=== PATIENT | male | born 1940 | race Two or more races ===

== ENCOUNTER 2024-01-20 06:34 | Day surgery (SDC) | payer OTHER, SELFPAY ==
[2024-01-20 08:02] VITALS: BMI 24.9
[2024-01-20 08:04] VITALS: BMI 24.9
[2024-01-20 08:11] VITALS: BP 152/79
[2024-01-20 10:58] VITALS: BP 132/80
[2024-01-20 11:00] VITALS: BP 150/81
[2024-01-20 11:15] VITALS: BP 165/82
== END 2024-01-20 11:50 | disposition home or self-care (01) ==
LOC: GI 06:34
PROVIDERS: ATTENDING PHYSICIAN Internal Medicine Gastroenterology
DX: K86.2 Cyst of pancreas (principal); R93.3 Abnormal findings on diagnostic imaging of other parts of digestive tract; K57.10 Diverticulosis of small intestine without perforation or abscess without bleeding; K86.89 Other specified diseases of pancreas
CPT/HCPCS: 43235; 88173

== ENCOUNTER → 2024-02-11 07:42 | Outpatient (REF) | payer OTHER, MEDICARE, SELFPAY | LOC: RAD 07:42 | PROVIDERS: ATTENDING PHYSICIAN Surgery; FAMILY PHYSICIAN Physician Assistant | DX: K86.9 Disease of pancreas, unspecified (principal) | CPT/HCPCS: 74177; Q9967 ==

== ENCOUNTER 2024-03-31 07:46 | Inpatient (IN) | payer OTHER, SELFPAY ==
[2024-03-23 07:49] VITALS: BMI 25.8
[2024-03-23 08:57] LABS: Hemoglobin 12.9 g/dL (13.0-18.0); Mean Corp Hgb Conc. 33.1 g/dL (33.0-37.0); Mean Corpuscular Hgb 30.9 pg (27.0-31.0); Mean Corpuscular Volume 93.5 fL (80.0-94.0); Mean Platelet Volume 10.1 fL (7.4-10.4); Platelet Count 188 10^3/uL (130-400); Red Blood Cell Count 4.17 10^6/uL (4.70-6.10); Red Cell Dist. Width 13.8 % (11.5-14.5); White Blood Cell Count 5.2 10^3/uL (4.8-10.8)
[2024-03-23 08:58] LABS: INR 0.96; PT 12.8 Sec (11.4-14.6)
[2024-03-23 08:59] LABS: APTT 31.6 Sec (23.4-35.0)
[2024-03-23 09:04] LABS: ALT (SGPT) 34 U/L (0-50); AST (SGOT) 31 U/L (17-59); Alkaline Phosphatase 96 U/L (38-126); Blood Urea Nitrogen 33 mg/dl (9-20); Calcium 9.6 mg/dl (8.4-10.2); Carbon Dioxide 27 mmol/L (22-30); Chloride 103 mmol/L (98-107); Estimated Creatinine Clearance 37 ml/min; Glucose 94 mg/dl (70-99); Potassium 4.3 mmol/L (3.5-5.1); Sodium 139 mmol/L (135-145); Total Bilirubin 0.7 mg/dl (0.2-1.3); Total Protein 6.9 g/dl (6.3-8.2); eGFR 59.63
[2024-03-31] VITALS (33 sets, daily range): BP systolic 35–161; BP diastolic 59–89; BMI 25.8
[2024-03-31] MEDS: NEURONTIN 300 MG PO (08:35)
[2024-03-31] MEDS: TYLENOL 1000 MG PO (08:36)
[2024-03-31] MEDS: NORMOSOL-R 1000 IV (08:37)
[2024-03-31] MEDS: HEPARIN 5000 UNITS SC (08:42)
[2024-03-31 11:16] LABS: B.E. - POC -5.1 mmol/L; Glucose - POC 136 mg/dl (65-99); HCO3 - POC 20 mmol/L (21-29); Hematocrit - POC 31 % PCV (42-52); Hemodilution- POC Yes; Hemoglobin Calculated - POC 10.4; Ionized Calcium - POC 1.05 mmol/L (1.12-1.27); Lactate - POC 0.76 mmol/L (0.36-0.75); O2 Saturation %Calculated-POC 99.7 5 (92-96); PCO2 - POC 37 mmHg (35-45); PO2 - POC 215 mmHg (80-100); Potassium - POC 3.8 mmol/L (3.6-5.0); Sodium - POC 145 mmol/L (135-145); pH - POC 7.34 (7.35-7.45)
[2024-03-31 12:51] LABS: B.E. - POC -1.7 mmol/L; Glucose - POC 141 mg/dl (65-99); HCO3 - POC 23 mmol/L (21-29); Hematocrit - POC 30 % PCV (42-52); Hemodilution- POC Yes; Hemoglobin Calculated - POC 10.1; Ionized Calcium - POC 1.24 mmol/L (1.12-1.27); Lactate - POC 0.59 mmol/L (0.36-0.75); O2 Saturation %Calculated-POC 99.9 5 (92-96); PCO2 - POC 38 mmHg (35-45); PO2 - POC 256 mmHg (80-100); Potassium - POC 4.6 mmol/L (3.6-5.0); Sodium - POC 142 mmol/L (135-145); pH - POC 7.39 (7.35-7.45)
[2024-03-31 14:48] LABS: B.E. - POC -7.6 mmol/L; Glucose - POC 142 mg/dl (65-99); HCO3 - POC 17 mmol/L (21-29); Hematocrit - POC 30 % PCV (42-52); Hemodilution- POC Yes; Hemoglobin Calculated - POC 10.2; Ionized Calcium - POC 1.13 mmol/L (1.12-1.27); Lactate - POC 0.85 mmol/L (0.36-0.75); O2 Saturation %Calculated-POC 99.8 5 (92-96); PCO2 - POC 29 mmHg (35-45); PO2 - POC 221 mmHg (80-100); Potassium - POC 3.7 mmol/L (3.6-5.0); Sodium - POC 143 mmol/L (135-145); pH - POC 7.37 (7.35-7.45)
--- NOTE | 2024-03-31 15:09 | W.IMMPOSTOP ---
Surgical Immed Post Op Note
-
Primary Surgeon: Artur Lee M.D.
Assisting Surgeon: Jennifer Valente
Pre-op Diagnosis: Pancreatic head mass
Post-op Diagnosis: Same with the final pathology pending
Procedure Performed: Whipple
Anesthesia Type: General
Specimen / Cultures: gallbladder, distal stomach with head of the pancreas and the duodenum
Estimated Blood Loss: 250cc
Complications: None
Operative Findings: Large multicystic nodules in the head of the pancreas extending to the uncinate process
--- NOTE | 2024-03-31 15:40 | CON.INTV ---
Consultation
Consultation Request
Date/Time Consultation Requested: 03-31-24
Date/Time Consultation Performed: 03-31-24
Requesting Provider: Hospitalist Carolyn
Performing Provider: Dr Mendez
Reason for Consultation: s/p Whipple
Medical History
-
Chief Complaint: s/p Whipple procedure
History of Present Illness:
Mr Carlos GUILLEN is an 84/M adm 03-31 for schedule Whipple procedure for recent diagnosis of pancreatic cancer.
CT abd/p in Jul 2023 was done for investigation of flank pain, showing pancreatic head cystic mass of 4 cm. MRI abd Aug 2023 showed multiple cysts. EUS in January 2023 biopsy results consistent with intraductal papillary mucinous neoplasm (IPMN) of
the pancreas.
Seen by Dr Lee, considered a good candidate for pancreatoduodenectomy. Cardiac clearance per outpatient evaluation given on 03-14 (low risk PET/CT ST).
Received Whipple procedure 03-31. Transferred to ICU after surgery due to intraop oozing in spite of preop holding of clopidogrel. Per anesthesia records, intubated for surgery, extubated post surgery
Seen at ICU, c/o postop pain. Denies dyspnea, CP, [place], nausea.
Nonsmoker. Not on home O2 or BDs
Past Medical History
Past Medical History: Other (see A&P for PMH/PSH)
Social History
Tobacco: Non-smoker
Alcohol: None
Drug: None
Family History
Family History: Reviewed & Not Pertinent
Allergies / Home Medications
Allergies
Allergy/AdvReac Type Severity Reaction Status Date / Time
No Known Allergies Allergy Verified 03/31/24 08:03
Home Medications
�Medication �Instructions �Recorded �Confirmed �Last Taken �Type
aspirin 81 mg tablet 81 mg PO DAILY 01/20/24 03/31/24 03/31/24 06:30 History
atenolol 25 mg tablet 25 mg PO DAILY 01/20/24 03/31/24 03/31/24 06:30 History
atorvastatin 80 mg tablet 80 mg PO DAILY 01/20/24 03/31/24 03/31/24 06:30 History
clopidogrel 75 mg tablet 75 mg PO DAILY 01/20/24 03/31/24 03/24/24 History
losartan 25 mg tablet 12.5 mg PO BID 01/20/24 03/31/24 03/30/24 08:00 History
mirabegron 50 mg tablet,extended 50 mg PO HS 01/20/24 03/31/24 03/30/24 22:30 History
release 24 hr (Myrbetriq)
tamsulosin 0.4 mg capsule 0.4 mg PO HS 01/20/24 03/31/24 03/30/24 22:30 History
atenolol 25 mg tablet 37.5 mg PO HS 03/29/24 03/31/24 03/30/24 20:00 History
Review of Systems
-
History Source: Patient
Constitutional: Fatigue
Abdomen/GI: Abdominal Pain (incisional)
Musculoskeletal: Other (postop back pain)
Vitals / Labs / Diagnostic Testing
Vital Signs
Temp Pulse Resp BP Pulse Ox
98.4 F 49 18 161/83 96
03/31/24 08:16 03/31/24 08:16 03/31/24 08:16 03/31/24 08:16 03/31/24 08:16
Lab Data
03/23/24 07:47
03/23/24 07:47
Diagnostic Testing:
Physical Exam
-
HEENT: Normocephalic and Moist Mucous Membranes
Cardiovascular: Regular Rhythm, Peripheral Edema (n), Calf Tenderness (n) and JVD (n)
Respiratory: Clear and Non-Labored Respirations
GI: Tender and Organomegaly (midline laparotomy wound, two drainage tubes)
Neurology: Awake, AO x 3 and No Motor Deficits
General: Respiratory Distress (n)
Assessment
-
Assessment:
Mr Carlos GUILLEN is an 84/M adm 03-31 for schedule Whipple procedure for recent diagnosis of pancreatic cancer. CT abd/p in Jul 2023 was doing for flank pain, showing pancreatic head cystic mass of 4 cm. MRI abd Aug 2023 showed multiple cysts. EUS in
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 Seen by Dr Lee, considered a good candidate fro pancreatoduodenectomy. Cardiac clearance per outpatient evaluation given on 03-14 (low risk
PET/CT ST). Transferred to ICU after surgery due to intraop oozing in spite of preop holding of clopidogrel. Per anesthesia records, intubated for surgery, extubated post surgery
Impression:
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
S/p Whipple procedure 03-31
Conditions SVP OPERATIONS:
T2DM
HTN
CVA
AAA
BPH
Plan:
O2 protocol
Not on home O2 or BDs
Asp precs
IS
Pain mgmt
Dilaudid low dose at 0.25 mg IV q1h for mod to severe pain
Naive to opiates
Reevaluate and increase dose if necessary
APAP IV at 1 g q6h
No NSAIDs for pain mgmt per Dr Lee
IVFs
Received 3L IVFs at OR
Keep LR at KVO for now, reevaluate and increase gtt depending of UO, BP, HR
Keep NPO
NGT to suctioning
Advance to clear liquids once OK by Sx
Monitor H/H
Monitor BP
Holding a-HTN meds for now
Holding ASA/clopidogrel, resume once OK by Sx
SCDs for DVT prophylaxis
Critical care time: 35 min
D/w DIRECTOR OF STRATEGIC COMMUNICATIONS
D/w overnight ICU DOVETAILER
--- NOTE | 2024-03-31 16:02 | HPS.HSE ---
Family Physician
-
Family Physician: Bijal Soni
Chief Complaint
-
Post-Whipple Procedure
History of Present Illness
84 y/o male with past medical history of pancreatic cysts/pancreatic cancer, DM, HTN, HLD, AAA (sees a vascular surgeon at [facility]), valvular heart disease (mild to moderate MR, mild AI, and mild TR), SVT, NSVT, loop recorder placement, PACs and
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 Lee. Dr. Lee mentioned patient lost about 250 cc of blood
during the procedure. He requested patient be monitored in ICU overnight closely for any decompensation. Patient denied any significant symptoms or complaints when he was seen.
Medical History
Past Medical History
Past Medical History: Reports Other (As per HPI above)
Past Surgical History: Reports Other (Bilateral Hernia Repair. Cataract Surgery. Loop Recorder. )
Social History
Tobacco: Non-smoker
Alcohol: Occasional
Family History
Family History: Not pertinent
Allergies / Home Medications
Allergies reflects when Allergies were last updated in [facility].
Home Medications with original date entered in [facility]
Allergy/Medication List:
Allergies
Allergy/AdvReac Type Severity Reaction Status Date / Time
No Known Allergies Allergy Verified 03/31/24 08:03
Home Medications
aspirin 81 mg tablet 81 mg PO DAILY 01/20/24
atenolol 25 mg tablet 25 mg PO DAILY 01/20/24
atorvastatin 80 mg tablet 80 mg PO DAILY 01/20/24
clopidogrel 75 mg tablet 75 mg PO DAILY 01/20/24
losartan 25 mg tablet 12.5 mg PO BID 01/20/24
mirabegron 50 mg tablet,extended release 24 hr (Myrbetriq) 50 mg PO HS 01/20/24
tamsulosin 0.4 mg capsule 0.4 mg PO HS 01/20/24
atenolol 25 mg tablet 37.5 mg PO HS 03/29/24
Review of Systems
-
A 12 point ROS was completed and negative except as noted: Yes
Physical Exam
Vital Signs
Vital Signs
Temp Pulse Resp BP Pulse Ox
97.4 F 74 18 133/67 99
03/31/24 15:20 03/31/24 15:45 03/31/24 15:45 03/31/24 15:45 03/31/24 15:50
Physical Exam
General: No Apparent Distress and Comfortable
HEENT: NormoCephalic and Other (NG tube)
Respiratory: Rhonchi (mild; bilaterally, anteriorly)
Cardiac: S1/S2 and Regular Rhythm
GI: Soft and Other (Midline surgical dressing in place. [address] with serosanguinous output.)
Musculoskeletal: No Cyanosis and No Edema
Skin: Warm and Dry
Neuro: Sedated (responds to questions on arousal)
Psych: Calm
Laboratory Results
-
Laboratory Results
PT 12.8 Sec (11.4-14.6) 03/23/24 07:47
INR 0.96 03/23/24 07:47
APTT 31.6 Sec (23.4-35.0) 03/23/24 07:47
Total Bilirubin 0.7 mg/dl (0.2-1.3) 03/23/24 07:47
AST 31 U/L (17-59) 03/23/24 07:47
ALT 34 U/L (0-50) 03/23/24 07:47
Alkaline Phosphatase 96 U/L (38-126) 03/23/24 07:47
Impression/Plan
-
Assessment/Plan
Pancreatic Head Mass Status Post Whipple Surgery on March 31, 2024
Large multicystic nodules in the head of the pancreas extending to the uncinate process
Pancreatic cysts/pancreatic cancer
-Whipple surgery on 03/31/24 -- was a 6 hours surgery
-Type and Screen and blood consent already obtained prior to surgery, as per Dr. Lee
-Monitor patient in ICU closely
-Monitor H&H and transfuse as needed to maintain Hgb>7
-AM labs and iron studies
History of Episode Atypical Chest Pain
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
SVT
NSVT
History of loop recorder placement
PACs
PVCs (sees cardiology at [place])
History of cardiac rhythm pauses
-Patient is supposed to be on Atenolol 12.5 mg in the morning
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
AAA (sees a vascular surgeon at [facility])
-Based on outside vascular surgeon records, AAA size is 4.6
-Sees Vascular Surgeon Dr. Vázquez at [facility]
-Planned for repeat imaging in April 2024
-Closely follow-up with Dr. Shannon Vázquez MD, outpatient
DM
-Accuchecks Q6H
-Start Diabetic, Low Sodium diet when patient is not NPO anymore
HTN
-Continue Losartan when able to take PO
-Outpatient cardiology records show that patient takes Losartan 25 mg in the AM and 37.5 mg in the PM (was on 25 mg BID)
-Per records, patient gets dry cough with Lisinopril
-Previously used to take HCTZ, but no longer
-Low sodium diet when diet is resumed
HLD
-Continue home Atorvastatin when able
BPH
-Continue Flomax when able to take PO
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
-No cardioembolic source was found at that time
-Continue Aspirin, Plavix and Statin when able
Varicose veins
?skin cancer?
History of nephrolithiasis
DVT PPx: SCDs
Code Status: Full Code
[2024-03-31 16:03] LABS: Hemoglobin 10.7 g/dL (13.0-18.0); Mean Corp Hgb Conc. 33.4 g/dL (33.0-37.0); Mean Corpuscular Hgb 30.7 pg (27.0-31.0); Mean Platelet Volume 9.6 fL (7.4-10.4); Platelet Count 156 10^3/uL (130-400); Red Blood Cell Count 3.48 10^6/uL (4.70-6.10); Red Cell Dist. Width 13.6 % (11.5-14.5); White Blood Cell Count 11.1 10^3/uL (4.8-10.8)
[2024-03-31 16:14] LABS: APTT 27.6 Sec (23.4-35.0)
[2024-03-31 16:19] LABS: ALT (SGPT) 81 U/L (0-50); AST (SGOT) 86 U/L (17-59); Albumin 2.9 g/dl (3.5-5.0); Alkaline Phosphatase 71 U/L (38-126); Amylase 107 U/L (30-110); Blood Urea Nitrogen 20 mg/dl (9-20); Calcium 8.6 mg/dl (8.4-10.2); Carbon Dioxide 26 mmol/L (22-30); Chloride 107 mmol/L (98-107); Estimated Creatinine Clearance 44 ml/min; Glucose 149 mg/dl (70-99); Lipase 314 U/L (23-300); Potassium 4.2 mmol/L (3.5-5.1); Sodium 140 mmol/L (135-145); Total Bilirubin 1.1 mg/dl (0.2-1.3); Total Protein 5.1 g/dl (6.3-8.2); eGFR > 60.00
[2024-03-31 16:43] LABS: Magnesium 1.9 mg/dl (1.6-2.3)
[2024-03-31] MEDS: DILAUDID 0.25 MG IV ×5 (16:45→21:16)
[2024-03-31] MEDS: LR 1000 IV (17:12)
--- NOTE | 2024-03-31 18:05 | PTCARENOTE ---
Received pt into Rm [id number] via bed from PACU at 1620. Pt drowsy but arousable to name. O2 at 2l/min via NC w/ POx 99%. Rt nare NGT present and placed to LIWS per order w/ small amount dark maroon drainage noted. Lt radial [place] transduced, leveled and
zero-balanced, waveform WNL. Aquacel dressing to midline abdomen w/ small amount of shadow drainage noted- no change from where previously marked. OFELIA drains to Rt and Lt abdomen. Emptied of serosanguineous drainage and recompressed. Orientation
provided to pt on surroundings and plan of care. Pt natively Portugese speaking but appears to understand questions and responds appropriately. Physical assessment as documented. By 1635 pt notably uncomfortable and c/o 10/10 lower back pain.
Mendez in room to assess pt and aware of pt's complaint. Order for Dilaudid 0.25mg IV received and given per DEC. Pt w/o relief of discomfort 15 minutes following Dilaudid. SBP in 170-180's by ABP. HR 80's. Abdomen remains soft and no change in
drainage of NGT or OFELIA drains. [place] Text to Dr Lee with pt continued c/o lower back pain. Order for additional dose of Dilaudid 0.25mg IV- given per DEC w/ pt dozing following administration. SBP remains 170-180's via ABP. Pt's daughter and
additional family members in room to see pt. Updated on pt's present condition and plan of care. Questions answered and support provided. assisted w/ answering admission questions. Comfort care provided to pt. Dilaudid given per DEC for
additional c/o pain.
--- NOTE | 2024-03-31 19:29 | PTCARENOTE ---
Handoff report received from off going RN. Dual RN skin check completed with off going RN. The patient has a midline abdominal incision with aquacell dressing intact. 3 small drainage spots noted. Right OEFLIA drain draining sanguinous drainage >left OFELIA
drain. Patient is AAOx4 and able to make his needs known. Complains of 10/10 abdominal incisional pain and centre back pain. Plan of care for the shift and pain management plan reviewed with the patient. Pt's sinus rhythm on the monitor. Weak but
palpable pulses. PIV. LR at 10ml/hr via left AC. Left radial arterial line zeroed and calibrated. Line flushes well with blood return and good Waveform. Pt's A-line SBP in the 180s-190s. Manual cuff pressure SBP in the 140s and 150s on the right
upper arm and SBP 150s in the left upper arm. MIGUELINA Ashraf made aware and at the bedside. Plan to continue monitoring at this time. Crackles to bilateral bases. Pt's on 2L/O2 nc. SpO2 at 100%. Hypoactive BS. Martinez catheter is draining yellow
urine. SCDs in place. PRN pain medication administered. Full assessment as noted on the flowsheet.
[2024-03-31] MEDS: OFIRMEV 100 IV (20:04)
[2024-03-31 22:28] LABS: Hematocrit 31.9 % (39.0-52.0); Hemoglobin 10.9 g/dL (13.0-18.0)
[2024-04-01] VITALS (23 sets, daily range): BP systolic 110–163; BP diastolic 56–94; BMI 25.7
--- NOTE | 2024-04-01 00:18 | PTCARENOTE ---
Patient reassessed. Remains AAOx3 and able to make his needs known. VSS. C/o 07/20 pain. OFELIA draining sanguineous output. A>B. UOP adequate. LR at 50ml/hr. NGT draining maroon blood output to LIWS.
[2024-04-01] MEDS: DILAUDID 0.25 MG IV ×6 (00:22→22:45)
[2024-04-01] MEDS: OFIRMEV 100 IV ×3 (02:11→13:49)
[2024-04-01 03:53] LABS: % Basophils 0.2 % (0-2); % Immature Granulocytes 0.4 % (0-0.5); % Lymphocytes 4.9 % (20.5-51.1); % Neutrophils 88.5 % (42.2-75.2); Absolute Immature Granulocytes 0.1 10^3/uL (0-0.05); Absolute Lymphocytes 0.6 10^3/uL (1.2-3.4); Absolute Monocytes 0.8 10^3/uL (0.1-0.6); Absolute Neutrophils 11.4 10^3/uL (1.4-6.5); Hematocrit 31.3 % (39.0-52.0); Hemoglobin 10.6 g/dL (13.0-18.0); Mean Corp Hgb Conc. 33.9 g/dL (33.0-37.0); Mean Corpuscular Hgb 30.9 pg (27.0-31.0); Mean Corpuscular Volume 91.3 fL (80.0-94.0); Mean Platelet Volume 9.9 fL (7.4-10.4); Nucleated Red Blood Cells % 0 % (-); Platelet Count 171 10^3/uL (130-400); Red Blood Cell Count 3.43 10^6/uL (4.70-6.10); Red Cell Dist. Width 13.6 % (11.5-14.5); White Blood Cell Count 12.9 10^3/uL (4.8-10.8)
[2024-04-01 04:16] LABS: ALT (SGPT) 68 U/L (0-50); AST (SGOT) 79 U/L (17-59); Albumin 2.9 g/dl (3.5-5.0); Alkaline Phosphatase 56 U/L (38-126); Blood Urea Nitrogen 25 mg/dl (9-20); Calcium 8.4 mg/dl (8.4-10.2); Carbon Dioxide 25 mmol/L (22-30); Chloride 105 mmol/L (98-107); Estimated Creatinine Clearance 40 ml/min; Glucose 179 mg/dl (70-99); Iron 29 ug/dl (49-181); Magnesium 2.1 mg/dl (1.6-2.3); Potassium 4.8 mmol/L (3.5-5.1); Sodium 136 mmol/L (135-145); Total Bilirubin 0.6 mg/dl (0.2-1.3); Total Protein 5.1 g/dl (6.3-8.2); eGFR > 60.00
[2024-04-01 04:25] LABS: Percent Saturation 14 % (20-50); Total Iron Binding Capacity 196 ug/dl (261-462)
--- NOTE | 2024-04-01 04:41 | PTCARENOTE ---
Patient reassessed. AAOx3. c/o 07/20 pain. PRN administered. Patient cleansed and linens changed. VSS on the monitor. No changes from the previous assessment.
[2024-04-01 04:51] LABS: Ferritin 97.6 ng/ml (17.9-464.0)
[2024-04-01 05:05] LABS: Vitamin B12 287 pg/ml (239-931)
--- NOTE | 2024-04-01 07:53 | W.PN.INTV ---
Today's Communication / Plan
Recommendations
Asp precs
IS
Pain mgmt
Reconsult prn
Assessment
-
Assessment:
Mr Carlos GUILLEN is an 84/M adm 03-31 for schedule Whipple procedure for recent diagnosis of pancreatic cancer. CT abd/p in Jul 2023 was doing for flank pain, showing pancreatic head cystic mass of 4 cm. MRI abd Aug 2023 showed multiple cysts. EUS in
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 Seen by Dr Lee, considered a good candidate fro pancreatoduodenectomy. Cardiac clearance per outpatient evaluation given on 03-14 (low risk
PET/CT ST). Transferred to ICU after surgery due to intraop oozing in spite of preop holding of clopidogrel. Per anesthesia records, intubated for surgery, extubated post surgery
Impression:
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
S/p Whipple procedure 03-31
Conditions SECURITY FLEX UTILITY OFFICER:
T2DM
HTN
CVA
AAA
BPH
Plan:
O2 protocol
Not on home O2 or BDs
Asp precs
IS
CXR 03-31 with no infiltrates. (N)GT, no free air under diaphragm
Pain mgmt
Dilaudid low dose at 0.25 mg IV q1h for mod to severe pain
Naive to opiates
Reevaluate and increase dose if necessary
APAP IV at 1 g q6h
No NSAIDs for pain mgmt per Dr Lee
Hgb remains stable postop: adm hgb 10.7, at 10.6 on 04-01
IVFs: LR
Received 3L IVFs at OR
Keep NPO
NGT to suctioning
Advance to clear liquids once OK by Sx
Monitor H/H
Monitor BP
Resume oral a-HTN meds when tolerating oral route
Holding ASA/clopidogrel, resume once OK by Sx
SCDs for DVT prophylaxis
No critical care time charged today
Stable to transfer to Med/Sx floor, reconsult as needed
D/w PLUSH FINISHER
Subjective Dataa
Subjective Data
Date of Service:
Date of Service: April 01, 2024
Chief Complaint: Edi Coordinator Follow Up
Subjective:
No major events reported overnight
Remained hemodynamically and respiratory tang stable
Hemoglobin has remained stable
Continues on IV fluids
Intermittent mild nausea
Nasogastric tube remains in place
Review of Systems
General: Fever (n), Sweats (n) and Satisfactory Appetite (n)
Cardiopulmonary: Dyspnea (n), Cough (n) and Chest Pain (n)
GI: Abdominal Pain (Incisional)
Neuro: Weakness
Objective Data
Data Reviewed
Vital Signs / I&O / Oxygen:
Vital Signs
Temp Pulse Resp BP Pulse Ox
98.4 F 54 19 141/73 100
04/01/24 07:20 04/01/24 00:30 04/01/24 00:30 04/01/24 00:00 04/01/24 00:30
Intake and Output
03/31/24 04/01/24 04/02/24
06:59 06:59 06:59
Intake Total 700 / 850 150 / 150
Output Total 2303 / 2303
Balance -1603 / -1453 150 / 150
SaO2 100
Nasal Cannula flow liters per 2
minute
Physical Exam
General: Comfortable
HEENT: Normocephalic and Moist Mucous Membranes
Cardiovascular: Regular Rhythm, JVD (n) and Peripheral Edema (n)
Respiratory: Clear, Accessory Resp Muscle Use (n) and Stridor (n)
GI: Non Distended and Tender
Neurology: Awake, AO x 3 and No Motor Deficits
Skin: Warm
Labs/Micro/Reports
Lab Data
04/01/24 03:35
04/01/24 03:35
Laboratory Results
03/31/24
15:53
PT 15.0 H
INR 1.20
APTT 27.6
--- NOTE | 2024-04-01 08:00 | PTCARENOTE ---
Received pt @ change of shift. AAOx3, c/o moderate abd pain @ incision, standing Tylenol admin- see DEC. SB-SR on monitor. SPo2 96% on RA. BS remain absent post op. R nare NGT to LIS w small amt of brown/maroon output. NPO status maintained. R/L
ABD OFELIA drain in place; R output>L; sang drainage. Martinez in place draining clear/yellow urine. Midline aquacell dressing w 3 scant spots of old drainage; circled by previous shift and drainage not increasing. B/L OFELIA site dressings c/d/i. #20 L AC
w LR @ 50mL/hr infusing; #18 L FA patent, dressing c/d/i. L rad A-line transduced, monitored, and calibrated; all ports patent and secured. -40mmHg off from current cuff pressures. MDs aware of A-line/cuff discrepancy on previous shift; received
in report to use cuff pressures for reliability. Hygiene care provided. Assisted w repositioning in bed. Instructed on how to report care concerns and call [place] in reach.
--- NOTE | 2024-04-01 11:31 | PTCARENOTE ---
L rad A-line d/c'd per orders. Pressure held until bleeding ceased and clean dressing applied. No signs of hematoma. Pt. w 1 episode of nausea today, plan to keep pt. NPO and NGT to LIS per surgery, Dr. Lee. Activity orders advanced and pt.
assisted OOB to chair x 2, generalized weakness. Pt.'s daughter updated via phone call. Call trin[place] remains w in reach.
--- NOTE | 2024-04-01 12:38 | W.PN.GENERIC ---
Assessment / Plan
-
S/p Whipple Procedure POD #1
Stable. No problems overnight.
No evidence of bleeding
Continue NPO, NGT, Rao cath, IVF
If he remains stable, will tsf pt to the surgical floor, dc NGT and dc rao tomorrow
Encourage pulmonary toilet
OOB to chair
Physician Progress Note
Subjective
C/o incisional pain. O/w no other complaints
Objective
Vital Signs
Temp Pulse Resp BP Pulse Ox
98.5 F 53 22 130/62 93
04/01/24 11:30 04/01/24 10:00 04/01/24 10:00 04/01/24 10:00 04/01/24 10:00
Lab Results
04/01/24 03:35
04/01/24 03:35
Abdomen - soft, NT. Dsg - CDI. OFELIA drains with serosanguineous fluid
Cor - RRR
[2024-04-01] MEDS: LR 1000 IV ×2 (12:54→22:45)
--- NOTE | 2024-04-01 13:52 | W.PN.HOSP.TC ---
Today's Communication/Plan
-
-NGT to suctioning - continue NPO, NGT, Rao cath, IVF - plans to dc NGT and dc rao tomorrow
-Pulmonary toilet
-OOB to chair
Assessment / Plan
Assessment / Plan
Physical Exam
General: No Apparent Distress and Comfortable
HEENT: Normocephalic and Other (NG tube)
Respiratory: Rhonchi (mild; bilaterally, anteriorly)
Cardiac: S1/S2 and Regular Rhythm
GI: Soft and Other (Midline surgical dressing in place. [address] with serosanguinous output.)
Musculoskeletal: No Cyanosis and No Edema
Skin: Warm and Dry
Neuro: Alert. Awake.
Psych: Calm
Assessment/Plan
Pancreatic Head Mass Status Post Whipple Surgery on March 31, 2024
Large multicystic nodules in the head of the pancreas extending to the uncinate process
Pancreatic cysts/pancreatic cancer
Leukocytosis
-Whipple surgery on 03/31/24 -- was a 6 hours surgery
-Type and Screen and blood consent already obtained prior to surgery, as per Dr. Lee
-Monitor patient in ICU closely
-Monitor H&H and transfuse as needed to maintain Hgb>7
-Iron studies noted
-No NSAIDs for pain mgmt per Dr Lee
-Keep NPO
-NGT to suctioning - continue NPO, NGT, Rao cath, IVF - plans to dc NGT and dc rao tomorrow
-Pulmonary toilet
-OOB to chair
Suspected Acute Blood Loss Anemia
Vitamin B12 close to low range @287
-IV iron while inpatient
-Supplement Vitamin B12 IM 1000 daily
Elevated Hepatic Transaminases
-Mild elevation
-Continue to monitor
History of Episode Atypical Chest Pain
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
SVT
NSVT
History of loop recorder placement
PACs
PVCs (sees cardiology at [place])
History of cardiac rhythm pauses
-Patient is supposed to be on Atenolol 12.5 mg in the morning
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
AAA (sees a vascular surgeon at [place])
-Based on outside vascular surgeon records, AAA size is 4.6
-Sees Vascular Surgeon Dr. Vázquez at [place]
-Planned for repeat imaging in April 2024
-Closely follow-up with Dr. Shannon Vázquez MD, outpatient
DM
-Accuchecks Q6H
-Start Diabetic, Low Sodium diet when patient is not NPO anymore
HTN
-Continue Losartan when able to take PO
-Outpatient cardiology records show that patient takes Losartan 25 mg in the AM and 37.5 mg in the PM (was on 25 mg BID)
-Per records, patient gets dry cough with Lisinopril
-Previously used to take HCTZ, but no longer
-Low sodium diet when diet is resumed
HLD
-Continue home Atorvastatin when able
BPH
-Continue Flomax when able to take PO
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
-No cardioembolic source was found at that time
-Continue Aspirin, Plavix and Statin when able to take PO
Varicose veins
?skin cancer?
History of nephrolithiasis
DVT PPx: SCDs
Code Status: Full Code
Anticipated Discharge: > 48 hours
Subjective/Interval History
-
Date of Service: April 01, 2024
Patient was seen and examined. He reported nausea this morning.
Objective Data
-
Labs:
Laboratory Results
04/01/24
03:35
WBC 12.9 H
Hgb 10.6 L
Hct 31.3 L
Plt Count 171
Sodium 136
Potassium 4.8
Chloride 105
Carbon Dioxide 25
BUN 25 H
Creatinine 1.1
Glucose 179 H
Calcium 8.4
Total Bilirubin 0.6
AST 79 H
ALT 68 H
Alkaline Phosphatase 56
Vital Signs:
Vital Signs
Temp Pulse Resp BP Pulse Ox
98.5 F 53 22 130/62 93
04/01/24 11:30 04/01/24 10:00 04/01/24 10:00 04/01/24 10:00 04/01/24 10:00
I&O
03/31/24 04/01/24 04/02/24
06:59 06:59 06:59
Intake Total 700 / 850 520 / 520
Output Total 2303 / 2303 390 / 390
Balance -1603 / -1453 130 / 130
[2024-04-01 14:04] LABS: Glucose - Point of Care 141 mg/dl (70-99)
[2024-04-01] MEDS: CYANOCOBALAMIN 1000 MCG IM (14:16)
[2024-04-01] MEDS: FERRLECIT 110 MG IV (14:17)
--- NOTE | 2024-04-01 16:07 | PTCARENOTE ---
Pt. tolerated OOB to chair approx 7H. Assisted x1 back to bed. Instructed earlier on breathing exercises/IS, pt. demonstrates understanding. Remains NPO w NGT to LIS. No further episodes of nausea. Assisted w repositioning in bed. Call trin[place]
placed w in reach.
[2024-04-01 18:01] LABS: Glucose - Point of Care 138 mg/dl (70-99)
[2024-04-01] MEDS: HEPARIN 5000 UNITS SC (19:28)
--- NOTE | 2024-04-01 19:35 | PTCARENOTE ---
Handoff report received from off going RN. Patient received in bed AAOx3 and able to make his needs known. The patient complains of 10/10 abdominal incisional pain. Plan of care for the shift and pain management plan reviewed with the patient. VSS
on the monitor. Palpable pulses throughout. Right forearm IV patent with LR at 80 ml/hr. Clear breath sounds with crackles to the bases. SpO2 100% on room air. No cough noted. Absent bowel sounds Protective sacral foam is intact. SCDs in place.
mouth care provided. Rt nare NGT to LIWS with dark maroon/brownish output. Martinez catheter is patent and draining yellow urine. PRN Dilaudid administered. Linens changed and patient repositioned. Safety measures are in place. Call trin[place] and personal
belongings are within reach.
[2024-04-02] VITALS (15 sets, daily range): BP systolic 127–165; BP diastolic 70–102; PULSE 89; O2SAT 96; BMI 25.7
[2024-04-02 00:03] LABS: Glucose - Point of Care 128 mg/dl (70-99)
--- NOTE | 2024-04-02 00:53 | PTCARENOTE ---
Patient reassessed. Remains AAOx3.VSS. Pt noted to be asleep. Even chest rise noted. SpO2@ 94% on room air. No changes from previous assessment.
--- NOTE | 2024-04-02 04:53 | PTCARENOTE ---
Patient reassessed. VSS. complains of 6/10 pain. declines pain medication. Rt OFELIA drain with sanguineous output and left OFELIA drain with dark brown output. Rt OFELIA output > Lt OFELIA. Pt's Rt NGT to LIWS draining green drainage. Martinez catheter is draining
yellow urine. turns and repositioning continued.
[2024-04-02 04:54] LABS: % Basophils 0.2 % (0-2); % Immature Granulocytes 0.5 % (0-0.5); % Lymphocytes 5.3 % (20.5-51.1); % Monocytes 6.3 % (1.7-9.3); % Neutrophils 87.7 % (42.2-75.2); Absolute Immature Granulocytes 0.1 10^3/uL (0-0.05); Absolute Lymphocytes 0.7 10^3/uL (1.2-3.4); Absolute Monocytes 0.9 10^3/uL (0.1-0.6); Absolute Neutrophils 11.9 10^3/uL (1.4-6.5); Hematocrit 32.7 % (39.0-52.0); Hemoglobin 11.1 g/dL (13.0-18.0); Mean Corp Hgb Conc. 33.9 g/dL (33.0-37.0); Mean Corpuscular Hgb 30.9 pg (27.0-31.0); Mean Corpuscular Volume 91.1 fL (80.0-94.0); Nucleated Red Blood Cells % 0 % (-); Platelet Count 171 10^3/uL (130-400); Red Blood Cell Count 3.59 10^6/uL (4.70-6.10); Red Cell Dist. Width 13.8 % (11.5-14.5); White Blood Cell Count 13.6 10^3/uL (4.8-10.8)
[2024-04-02] MEDS: DILAUDID 0.25 MG IV (05:06)
--- NOTE | 2024-04-02 05:11 | PTCARENOTE ---
Patient asked for his prn pain medication for 8/10 pain to abd incision. PRN administered.
[2024-04-02 05:17] LABS: ALT (SGPT) 58 U/L (0-50); AST (SGOT) 59 U/L (17-59); Albumin 2.9 g/dl (3.5-5.0); Alkaline Phosphatase 59 U/L (38-126); Blood Urea Nitrogen 21 mg/dl (9-20); Calcium 8.4 mg/dl (8.4-10.2); Carbon Dioxide 29 mmol/L (22-30); Chloride 103 mmol/L (98-107); Estimated Creatinine Clearance 40 ml/min; Glucose 133 mg/dl (70-99); Potassium 4.2 mmol/L (3.5-5.1); Sodium 138 mmol/L (135-145); Total Bilirubin 0.6 mg/dl (0.2-1.3); Total Protein 5.2 g/dl (6.3-8.2); eGFR > 60.00
[2024-04-02 06:01] LABS: Glucose - Point of Care 137 mg/dl (70-99)
--- NOTE | 2024-04-02 07:48 | W.PN.INTV ---
Today's Communication / Plan
Recommendations
NGT
Pain mgmt
IVFs
To Med/Sx once ok by Dr Lee
Assessment
-
Assessment:
Mr Carlos GUILLEN is an 84/M adm 03-31 for schedule Whipple procedure for recent diagnosis of pancreatic cancer. CT abd/p in Jul 2023 was doing for flank pain, showing pancreatic head cystic mass of 4 cm. MRI abd Aug 2023 showed multiple cysts. EUS in
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 Seen by Dr Lee, considered a good candidate fro pancreatoduodenectomy. Cardiac clearance per outpatient evaluation given on 03-14 (low risk
PET/CT ST). Transferred to ICU after surgery due to intraop oozing in spite of preop holding of clopidogrel. Per anesthesia records, intubated for surgery, extubated post surgery
Impression:
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
S/p Whipple procedure 03-31
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
T2DM
HTN
CVA
AAA
BPH
Plan:
O2 protocol
Not on home O2 or BDs
Asp precs
IS
CXR 03-31 with no infiltrates. (N)GT, no free air under diaphragm
Pain mgmt
Dilaudid low dose at 0.25 mg IV q1h for mod to severe pain
Naive to opiates
Reevaluate and increase dose if necessary, so fare remains relatively comfortable on above regimen
APAP IV at 1 g q6h, now discontinued
No NSAIDs for pain mgmt per Dr Lee
Hgb remains stable postop: adm hgb 10.7, at 10.6 on 04-01, 11.1 on 04-02
IVFs: LR
Received 3L IVFs at OR
Remains afebrile and hemodyn stable
Observing off atbs
Keep NPO
NGT to suctioning
Advance to clear liquids once OK by Sx
Monitor H/H
Monitor BP
Resume oral a-HTN meds when tolerating oral route
Holding ASA/clopidogrel, resume once OK by Sx
SCDs for DVT prophylaxis
OOB as tolerated
No critical care time charged today
Stable to transfer to Med/Sx floor once OK with Dr Lee, will sign off then
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
Subjective Dataa
Subjective Data
Date of Service:
Date of Service: April 02, 2024
Chief Complaint: Tile Decorator Follow Up
Subjective:
No major events reported overnight
So far progressing well in the postoperative state
Sitting in chair at time of visit
Reports postop abdominal pain, however this is improved
Nasogastric tube in place, remains n.p.o.
Review of Systems
General: Fever (n), Sweats (n) and Satisfactory Appetite (n)
HEENT: Epistaxis (n) and Dysphagia (n)
Cardiopulmonary: Dyspnea (n), Cough (n), Wheezing (n), Chest Pain (n) and Edema (n)
GI: Abdominal Pain, Nausea (n) and Vomiting (n)
Neuro: Weakness
Objective Data
Data Reviewed
Vital Signs / I&O / Oxygen:
Vital Signs
Temp Pulse Resp BP Pulse Ox
99.6 F 65 20 149/70 100
04/02/24 03:12 04/01/24 19:00 04/01/24 19:00 04/01/24 19:00 04/01/24 19:53
Intake and Output
04/01/24 04/02/24 04/03/24
06:59 06:59 06:59
Intake Total 700 / 850 2160 / 2160
Output Total 2303 / 2303 2163 / 2163
Balance -1603 / -1453 -3 / -3
SaO2 100
Nasal Cannula flow liters per 2
minute
Physical Exam
General: Comfortable
HEENT: Normocephalic, Moist Mucous Membranes and Other (NGT)
Cardiovascular: Regular Rhythm, JVD (n) and Peripheral Edema (n)
Respiratory: Clear, Accessory Resp Muscle Use (n) and Stridor (n)
GI: Non Distended, Tender and Other (two abd drains )
Neurology: Awake, AO x 3 and No Motor Deficits
Skin: Warm
Labs/Micro/Reports
Lab Data
04/02/24 04:37
04/02/24 04:37
--- NOTE | 2024-04-02 08:00 | PTCARENOTE ---
Received pt @ change of shift. Pt. AAOx3, c/o mild abd pain that meets pt.'s acceptable level of pain. SB-SR on monitor. SPo2 97% on RA, BS remain absent, abd round/tender. R nare NGT to LIS w green/brown output. Martinez removed by nightshift RN
and pt voided 300mL of yellow urine. Midline abd aquacell w 3 spots of old scant drainage, amt not increasing. B/L OFELIA drain remain in place; A- remains w ser/sang drainage w mod output; B w scant purulent output. # 18 R wrist w LR @ 80mL/hr
infusing. Call trin[place] remains w in reach.
[2024-04-02] MEDS: HEPARIN 5000 UNITS SC ×2 (08:22→20:19)
[2024-04-02] MEDS: CYANOCOBALAMIN 1000 MCG IM (08:22)
[2024-04-02] MEDS: LR 1000 IV (10:48)
--- NOTE | 2024-04-02 11:29 | W.PN.GENERIC ---
Assessment / Plan
-
S/p Whipple procedure POD #2
Hemodynamically stable
I&O's negative
Will increase IV rate to 100 cc/hr
Will clamp NGT x 2 hr, if the residual is minimal, may dc NGT today
Continue NPO
There is no evidence of bleeding. BUN & Cr are WNL
Will add Toradol for better pain control
Encourage pulm toilet
Physician Progress Note
Subjective
Had an episode of nausea after AM dose of dilaudid. No nausea now. Also feels dizzy when standing.
Objective
Vital Signs
Temp Pulse Resp BP Pulse Ox
99.5 F 65 20 149/70 97
04/02/24 11:05 04/01/24 19:00 04/01/24 19:00 04/01/24 19:00 04/02/24 11:18
Lab Results
04/02/24 04:37
04/02/24 04:37
Abdomen - soft ND, NT. Dsg - intact
--- NOTE | 2024-04-02 11:30 | PTCARENOTE ---
Addendum entered by Trinh Parra RN 04/02/24 13:08:
30 minutes*
Addendum entered by Trinh Parra RN 04/02/24 11:45:
NGT clamping trial initiated by Dr. Lee @ 1130; plan to reconnect to suction @ 1330 and report output s/p [address] Lee.
Original Note:
Assisted x1 OOB to chair @ 0900, generalized weakness. NGT output 350 since change of shift; 850 total output since surgery. Dr. Lee to bedside aware of NGT output and OFELIA drainage amt/color. Breathing exercises/IS encouraged; demonstrates
understanding. #18 R wrist infiltrated; removed. #20 R AC placed and IVF infusing via new line. Pt.'s daughter @ bedside updated on plan of care. Instructed on how to report care concerns and call vivi ling in reach.
[2024-04-02] MEDS: TORADOL 15 MG IV ×2 (11:39→18:12)
[2024-04-02 12:14] LABS: Glucose - Point of Care 125 mg/dl (70-99)
[2024-04-02] MEDS: FERRLECIT 110 MG IV (13:01)
--- NOTE | 2024-04-02 13:07 | PTCARENOTE ---
Report given to 2S RN and pt. transported via wheelchair to rm [id number] w belongings and family. No further needs from this RN.
--- NOTE | 2024-04-02 16:16 | W.PN.HOSP.TC ---
Today's Communication/Plan
-
Clamp NGT
See below
Assessment / Plan
Assessment / Plan
Physical Exam
General: No Apparent Distress and Comfortable
HEENT: Normocephalic and Other (NG tube)
Respiratory: Rhonchi (mild; bilaterally, anteriorly)
Cardiac: S1/S2 and Regular Rhythm
GI: Soft and Other (Midline surgical dressing in place. [address] with serosanguinous output.)
Musculoskeletal: No Cyanosis and No Edema
Skin: Warm and Dry
Neuro: Alert. Awake.
Psych: Calm
Assessment/Plan
Pancreatic Head Mass Status Post Whipple Surgery on March 31, 2024
Large multicystic nodules in the head of the pancreas extending to the uncinate process
Pancreatic cysts/pancreatic cancer
Leukocytosis
-Whipple surgery on 03/31/24 -- was a 6 hours surgery
-Type and Screen and blood consent already obtained prior to surgery, as per Dr. Lee
-Monitor patient in ICU closely
-Monitor H&H and transfuse as needed to maintain Hgb>7
-Iron studies noted
-Toradol ordered by Dr. Lee for pain mgmt per Dr Lee
-Keep NPO
-NGT to suctioning - continue NPO, Martinez cath, IV fluids - clamp NG tube today and monitor residuals
-Pulmonary toilet
-OOB to chair
Suspected Acute Blood Loss Anemia
Vitamin B12 close to low range @287
-IV iron while inpatient
-Supplement Vitamin B12 IM 1000 daily
Elevated Hepatic Transaminases
-Mild elevation
-Continue to monitor
History of Episode Atypical Chest Pain
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
SVT
NSVT
History of loop recorder placement
PACs
PVCs (sees cardiology at [place])
History of cardiac rhythm pauses
-Patient is supposed to be on Atenolol 12.5 mg in the morning as per outpatient records
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
AAA (sees a vascular surgeon at [place])
-Based on outside vascular surgeon records, AAA size is 4.6
-Sees Vascular Surgeon Dr. Vázquez at [place]
-Planned for repeat imaging in April 2024
-Closely follow-up with Dr. Shannon Vázquez MD, outpatient
DM
-Accuchecks Q6H
-Start Diabetic, Low Sodium diet when patient is not NPO anymore
HTN
-Continue Losartan when able to take PO
-Outpatient cardiology records show that patient takes Losartan 25 mg in the AM and 37.5 mg in the PM (was on 25 mg BID)
-Per records, patient gets dry cough with Lisinopril
-Previously used to take HCTZ, but no longer
-Low sodium diet when diet is resumed
HLD
-Continue home Atorvastatin when able
BPH
-Continue Flomax when able to take PO
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
-No cardioembolic source was found at that time
-Continue Aspirin, Plavix and Statin when able to take PO
Varicose veins
?skin cancer?
History of nephrolithiasis
DVT PPx: SCDs
Code Status: Full Code
Anticipated Discharge: > 48 hours
Subjective/Interval History
-
Date of Service: April 02, 2024
Patient was seen and examined. He reports weak and somewhat dizzy still, NGT in place. He denied any bowel movement or passing any gas.
Objective Data
-
Labs:
Laboratory Results
04/02/24
04:37
WBC 13.6 H
Hgb 11.1 L
Hct 32.7 L
Plt Count 171
Sodium 138
Potassium 4.2
Chloride 103
Carbon Dioxide 29
BUN 21 H
Creatinine 1.1
Glucose 133 H
Calcium 8.4
Total Bilirubin 0.6
AST 59
ALT 58 H
Alkaline Phosphatase 59
Vital Signs:
Vital Signs
Temp Pulse Resp BP Pulse Ox
98.2 F 95 18 154/91 97
04/02/24 15:45 04/02/24 15:45 04/02/24 15:45 04/02/24 15:45 04/02/24 15:52
I&O
04/01/24 04/02/24 04/03/24
06:59 06:59 06:59
Intake Total 700 / 850 2160 / 2160 1200 / 1200
Output Total 2303 / 2303 2163 / 2163 786 / 786
Balance -1603 / -1453 -3 / -3 414 / 414
[2024-04-02 17:57] LABS: Glucose - Point of Care 115 mg/dl (70-99)
--- NOTE | 2024-04-02 19:34 | PTCARENOTE ---
1200 pt c/o pain on right side small bruise green/blue noted. he said he carries a mineral that helps with pain that he has under his arm when he fell and he may have landed on it. Area is not firm., but is tender
[2024-04-02] MEDS: TORADOL IV (23:10)
[2024-04-03] VITALS (7 sets, daily range): BP systolic 138–173; BP diastolic 75–95; PULSE 83; O2SAT 94
[2024-04-03 00:12] LABS: Glucose - Point of Care 120 mg/dl (70-99)
[2024-04-03] MEDS: TORADOL 15 MG IV ×4 (00:12→19:30)
[2024-04-03] MEDS: ZOFRAN 4 MG IV (00:13)
[2024-04-03] MEDS: LR 1000 IV ×2 (04:50→13:41)
[2024-04-03 07:01] LABS: % Basophils 0.1 % (0-2); % Immature Granulocytes 0.8 % (0-0.5); % Lymphocytes 10.6 % (20.5-51.1); % Monocytes 6.7 % (1.7-9.3); % Neutrophils 81.8 % (42.2-75.2); Absolute Immature Granulocytes 0.1 10^3/uL (0-0.05); Absolute Lymphocytes 0.8 10^3/uL (1.2-3.4); Absolute Monocytes 0.5 10^3/uL (0.1-0.6); Absolute Neutrophils 6.3 10^3/uL (1.4-6.5); Mean Corp Hgb Conc. 33.3 g/dL (33.0-37.0); Mean Corpuscular Hgb 30.8 pg (27.0-31.0); Mean Corpuscular Volume 92.4 fL (80.0-94.0); Mean Platelet Volume 10.6 fL (7.4-10.4); Nucleated Red Blood Cells % 0 % (-); Platelet Count 173 10^3/uL (130-400); Red Blood Cell Count 3.57 10^6/uL (4.70-6.10); Red Cell Dist. Width 14.1 % (11.5-14.5); White Blood Cell Count 7.7 10^3/uL (4.8-10.8)
[2024-04-03 07:18] LABS: ALT (SGPT) 48 U/L (0-50); AST (SGOT) 46 U/L (17-59); Albumin 2.9 g/dl (3.5-5.0); Alkaline Phosphatase 63 U/L (38-126); Blood Urea Nitrogen 29 mg/dl (9-20); Calcium 8.6 mg/dl (8.4-10.2); Carbon Dioxide 33 mmol/L (22-30); Chloride 101 mmol/L (98-107); Estimated Creatinine Clearance 40 ml/min; Glucose 119 mg/dl (70-99); Magnesium 2.2 mg/dl (1.6-2.3); Phosphorus 3.4 mg/dl (2.5-4.5); Potassium 3.7 mmol/L (3.5-5.1); Sodium 140 mmol/L (135-145); Total Bilirubin 0.7 mg/dl (0.2-1.3); Total Protein 5.4 g/dl (6.3-8.2); eGFR > 60.00
--- NOTE | 2024-04-03 08:20 | W.PN.GENERIC ---
Assessment / Plan
-
S/p Whipple Procedure POD #3
Stable.
NGT removed. If remains without any N/V x 24 hours, we will start liquid diet
Continue IVF
OOB and ambulate
Await final path
Physician Progress Note
Subjective
Feelong better. His incisional pain is less. No n/v
Objective
Vital Signs
Temp Pulse Resp BP Pulse Ox
99.3 F 72 17 173/89 97
04/03/24 07:50 04/03/24 07:50 04/03/24 07:50 04/03/24 07:50 04/03/24 07:50
Lab Results
04/03/24 05:27
04/03/24 05:27
Abdomen - soft, ND, NT
OFELIA drains intact
COr - rrr
--- NOTE | 2024-04-03 09:18 | W.PN.HOSP.TC ---
Today's Communication/Plan
-
hopefully clear liquids to resume tomorrow
continue IVF
Assessment / Plan
Assessment / Plan
Pancreatic Head Mass Status Post Whipple Surgery on March 31, 2024
Large multicystic nodules in the head of the pancreas extending to the uncinate process
Pancreatic cysts/pancreatic cancer
Leukocytosis
-Whipple surgery on 03/31/24 -- was a 6 hours surgery
-Type and Screen and blood consent already obtained prior to surgery, as per Dr. Lee
-Monitor H&H Hgb 10.7-->10.9-->10.6-->11.1-->11.0
-Iron sat 14%, Ferritin 97.6
-Toradol ordered by Dr. Lee for pain mgmt per Dr Lee
-Keep NPO
-NGT removed, pt tolerating, potential advance to clears next 24 hrs
-Pulmonary toilet
-OOB to chair
Suspected Acute Blood Loss Anemia
Vitamin B12 close to low range @287
-IV iron while inpatient
-Supplement Vitamin B12 IM 1000 daily
Elevated Hepatic Transaminases
-Mild elevation
-Continue to monitor
History of Episode Atypical Chest Pain
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
SVT
NSVT
History of loop recorder placement
PACs
PVCs (sees cardiology at [place])
History of cardiac rhythm pauses
-Patient is supposed to be on Atenolol 12.5 mg in the morning as per outpatient records
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
AAA (sees a vascular surgeon at [place])
-Based on outside vascular surgeon records, AAA size is 4.6
-Sees Vascular Surgeon Dr. Vázquez at [place]
-Planned for repeat imaging in April 2024
-Closely follow-up with Dr. Shannon Vázquez MD, outpatient
DM
-Accuchecks Q6H
-Start Diabetic, Low Sodium diet when patient is not NPO anymore
HTN
-Continue Losartan when able to take PO
-Outpatient cardiology records show that patient takes Losartan 25 mg in the AM and 37.5 mg in the PM (was on 25 mg BID)
-Per records, patient gets dry cough with Lisinopril
-Previously used to take HCTZ, but no longer
-Low sodium diet when diet is resumed
HLD
-Continue home Atorvastatin when able
BPH
-Continue Flomax when able to take PO
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
-No cardioembolic source was found at that time
-Continue Aspirin, Plavix and Statin when able to take PO
resume ASA/Plavix when cleared by Surgery
Varicose veins
?skin cancer?
History of nephrolithiasis
DVT PPx: SCDs
Code Status: Full Code
Anticipated Discharge: > 48 hours
Subjective/Interval History
-
Date of Service: April 03, 2024
Awake, alert, denies significant pain
Objective Data
-
Labs:
Laboratory Results
04/03/24
05:27
WBC 7.7
Hgb 11.0 L
Hct 33.0 L
Plt Count 173
Sodium 140
Potassium 3.7
Chloride 101
Carbon Dioxide 33 H
BUN 29 H
Creatinine 1.1
Glucose 119 H
Calcium 8.6
Total Bilirubin 0.7
AST 46
ALT 48
Alkaline Phosphatase 63
Vital Signs:
Vital Signs
Temp Pulse Resp BP Pulse Ox
99.3 F 72 17 173/89 97
04/03/24 07:50 04/03/24 07:50 04/03/24 07:50 04/03/24 07:50 04/03/24 07:50
I&O
04/02/24 04/03/24 04/04/24
06:59 06:59 06:59
Intake Total 2160 / 2160 2400 / 2400
Output Total 2163 / 2163 2436 / 2436
Balance -3 / -3 -36 / -36
Review of Systems
-
History Source: Patient
Constitutional: Denies Fever
EENT: Reports No Symptoms Reported
Respiratory: Reports No Symptoms
Cardiac: Reports No Symptoms
Abdomen/GI: Reports Abdominal Pain (mild); Denies Nausea or Vomiting
Musculoskeletal: Reports No Symptoms
Neuro: Reports No Symptoms
Physical Exam
-
General: Well Developed, Well Nourished and No Apparent Distress
HEENT: Normocephalic, Atraumatic and Moist Mucous Membranes
Respiratory: Clear to Auscultation (shallow respirations); Negative Wheezes, Rales or Rhonchi
Cardiac: Regular Rhythm and S1/S2
GI: Soft, Nondistended and Other ([address]); Negative Normal Bowel Sounds (hypoactive BS)
[2024-04-03] MEDS: CYANOCOBALAMIN 1000 MCG IM (09:51)
[2024-04-03] MEDS: HEPARIN 5000 UNITS SC ×2 (09:51→21:00)
[2024-04-03 12:29] LABS: B.E. - POC -2.6 mmol/L; Glucose - POC 100 mg/dl (65-99); HCO3 - POC 23 mmol/L (21-29); Hematocrit - POC 28 % PCV (42-52); Hemodilution- POC No; Hemoglobin Calculated - POC 9.6; Ionized Calcium - POC 1.15 mmol/L (1.12-1.27); Lactate - POC < 0.30 mmol/L (0.36-0.75); O2 Saturation %Calculated-POC 99.8 5 (92-96); PCO2 - POC 44 mmHg (35-45); PO2 - POC 253 mmHg (80-100); Potassium - POC 3.8 mmol/L (3.6-5.0); Sodium - POC 142 mmol/L (135-145); pH - POC 7.33 (7.35-7.45)
[2024-04-03] MEDS: FERRLECIT 110 MG IV (13:40)
[2024-04-03 17:11] LABS: Glucose - Point of Care 113 mg/dl (70-99)
--- NOTE | 2024-04-03 20:00 | PTCARENOTE ---
Received pt at change of shift. pt AAOx3, able to make all needs known. abd midline w scant old drainage. R OFELIA w s/s drainage - drsg CDI. L OFELIA w purulent drainage - drsg CDI. LR @100mL/hr via R hand INT. Strict NPO maintained. No c/o pain at this
time, assessment ongoing.
[2024-04-03] MEDS: LR IV (21:40)
[2024-04-04 00:09] LABS: Glucose - Point of Care 109 mg/dl (70-99)
[2024-04-04] MEDS: TORADOL 15 MG IV ×3 (01:00→12:59)
[2024-04-04 03:25] VITALS: BP 120/70
[2024-04-04] MEDS: LR 1000 IV (03:32)
[2024-04-04 06:12] LABS: Glucose - Point of Care 129 mg/dl (70-99)
[2024-04-04 07:26] VITALS: BP 144/68
[2024-04-04 07:30] LABS: % Basophils 0.2 % (0-2); % Eosinophils 0.2 % (0-6); % Immature Granulocytes 0.7 % (0-0.5); % Lymphocytes 12.6 % (20.5-51.1); % Monocytes 9.3 % (1.7-9.3); Absolute Lymphocytes 0.8 10^3/uL (1.2-3.4); Absolute Monocytes 0.6 10^3/uL (0.1-0.6); Absolute Neutrophils 4.6 10^3/uL (1.4-6.5); Hematocrit 29.4 % (39.0-52.0); Hemoglobin 9.5 g/dL (13.0-18.0); Mean Corp Hgb Conc. 32.3 g/dL (33.0-37.0); Mean Corpuscular Hgb 31.1 pg (27.0-31.0); Mean Corpuscular Volume 96.4 fL (80.0-94.0); Nucleated Red Blood Cells % 0 % (-); Platelet Count 142 10^3/uL (130-400); Red Blood Cell Count 3.05 10^6/uL (4.70-6.10); White Blood Cell Count 5.9 10^3/uL (4.8-10.8)
--- NOTE | 2024-04-04 08:01 | W.PN.HOSP.TC ---
Today's Communication/Plan
-
await surgical decision as to timing of resumption of oral intake
will slow IVF
Assessment / Plan
Assessment / Plan
Pancreatic Head Mass Status Post Whipple Surgery on March 31, 2024
Large multicystic nodules in the head of the pancreas extending to the uncinate process
Pancreatic cysts/pancreatic cancer
Leukocytosis
-Whipple surgery on 03/31/24 -- was a 6 hours surgery
-Type and Screen and blood consent already obtained prior to surgery, as per Dr. Lee
-Monitor H&H Hgb 10.7-->10.9-->10.6-->11.1-->11.0-->9.5
-Iron sat 14%, Ferritin 97.6
-Toradol ordered by Dr. Lee for pain mgmt per Dr Lee
WBC 11.1-->12.9-->13.6-->7.7-->5.9k
-NGT removed, pt tolerating, potential advance to clears next 24 hrs
-Pulmonary toilet
-OOB to chair
Suspected Acute Blood Loss Anemia
Vitamin B12 close to low range @287
-IV iron while inpatient
-Supplement Vitamin B12 IM 1000 daily
Elevated Hepatic Transaminases
AST 86-->79-->59-->46
-Mild elevation, better
-Continue to monitor
History of Episode Atypical Chest Pain
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
SVT
NSVT
History of loop recorder placement
PACs
PVCs (sees cardiology at [place])
History of cardiac rhythm pauses
-Patient was on on Atenolol 12.5 mg in the morning as per outpatient records
BP 120-160/68-95
Once tolerating oral intake, will plan on resuming
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
AAA (sees a vascular surgeon at [place])
-Based on outside vascular surgeon records, AAA size is 4.6
-Sees Vascular Surgeon Dr. Vázquez at [place]
-Planned for repeat imaging in April 2024
-Closely follow-up with Dr. Shannon Vázquez MD, outpatient
DM
-Accuchecks Q6H
-Start Diabetic, Low Sodium diet when patient is not NPO anymore
glu 115-129
HTN
-Continue Losartan when able to take PO
-Outpatient cardiology records show that patient takes Losartan 25 mg in the AM and 37.5 mg in the PM (was on 25 mg BID)
-Per records, patient gets dry cough with Lisinopril
-Previously used to take HCTZ, but no longer
-Low sodium diet when diet is resumed
HLD
-Continue home Atorvastatin when able
BPH
-Continue Flomax when able to take PO
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
-No cardioembolic source was found at that time
-Continue Aspirin, Plavix and Statin when able to take PO
resume ASA/Plavix when cleared by Surgery
Varicose veins
?skin cancer?
History of nephrolithiasis
DVT PPx: SCDs
Code Status: Full Code
Anticipated Discharge: > 48 hours
Subjective/Interval History
-
Date of Service: April 04, 2024
Still no flatus or stool production
Objective Data
-
Labs:
Laboratory Results
04/04/24
05:48
WBC 5.9
Hgb 9.5 L
Hct 29.4 L
Plt Count 142
Sodium Pending
Potassium Pending
Chloride Pending
Carbon Dioxide Pending
BUN Pending
Creatinine Pending
Glucose Pending
Calcium Pending
Total Bilirubin Pending
AST Pending
ALT Pending
Alkaline Phosphatase Pending
Vital Signs:
Vital Signs
Temp Pulse Resp BP Pulse Ox
98.9 F 56 16 144/68 94
04/04/24 07:26 04/04/24 07:26 04/04/24 07:26 04/04/24 07:26 04/04/24 07:26
I&O
04/03/24 04/04/24 04/05/24
06:59 06:59 06:59
Intake Total 2400 / 2400 980 / 980
Output Total 2436 / 2436 1170 / 1170
Balance -36 / -36 -190 / -190
Review of Systems
-
History Source: Patient
Constitutional: Denies Fever
EENT: Reports No Symptoms Reported
Respiratory: Reports No Symptoms
Cardiac: Reports No Symptoms
Abdomen/GI: Reports Abdominal Pain (mild) and Constipated (no stool or flatus); Denies Nausea or Vomiting
Musculoskeletal: Reports No Symptoms
Neuro: Reports No Symptoms
Physical Exam
-
General: Well Developed, Well Nourished and No Apparent Distress
HEENT: Normocephalic, Atraumatic and Moist Mucous Membranes
Respiratory: Clear to Auscultation (shallow respirations); Negative Wheezes, Rales or Rhonchi
Cardiac: Regular Rhythm and S1/S2
GI: Soft, Tender (mild tenderness), Distended (mild distention) and Other ([address]); Negative Normal Bowel Sounds (hypoactive BS, BS remains scattered, but significantly more active past 24 hrs)
Neuro: Awake, Alert and Oriented
[2024-04-04 08:06] LABS: ALT (SGPT) 36 U/L (0-50); AST (SGOT) 32 U/L (17-59); Albumin 2.6 g/dl (3.5-5.0); Alkaline Phosphatase 55 U/L (38-126); Blood Urea Nitrogen 39 mg/dl (9-20); Calcium 8.4 mg/dl (8.4-10.2); Carbon Dioxide 33 mmol/L (22-30); Chloride 103 mmol/L (98-107); Estimated Creatinine Clearance 40 ml/min; Glucose 109 mg/dl (70-99); Magnesium 2.4 mg/dl (1.6-2.3); Phosphorus 3.2 mg/dl (2.5-4.5); Potassium 3.6 mmol/L (3.5-5.1); Sodium 140 mmol/L (135-145); Total Bilirubin 0.6 mg/dl (0.2-1.3); Total Protein 4.8 g/dl (6.3-8.2); eGFR > 60.00
[2024-04-04 09:05] LABS: Body Fluid Amylase 36 U/L
[2024-04-04] MEDS: CYANOCOBALAMIN 1000 MCG IM (09:50)
[2024-04-04] MEDS: HEPARIN 5000 UNITS SC ×2 (09:50→20:30)
[2024-04-04 11:00] VITALS: BP 174/81
[2024-04-04] MEDS: FERRLECIT 110 MG IV (13:00)
--- NOTE | 2024-04-04 13:36 | W.PN.GENERIC ---
Assessment / Plan
-
S/p Whipple procedure POD #4
Diet started
Decrease in Hg noted - Dilutional?
Will DC toradol
Will follow Hg
OOB and ambulate
If he tolerates clears today, increase diet to full tomorrow
Await path
Physician Progress Note
Subjective
No complaints. The incisional pain better. No N/V. Tolerating clears
Objective
Vital Signs
Temp Pulse Resp BP Pulse Ox
98.6 F 58 16 174/81 94
04/04/24 11:00 04/04/24 11:00 04/04/24 11:00 04/04/24 11:00 04/04/24 11:00
Lab Results
04/04/24 05:48
04/04/24 05:48
Abdomen - soft ND NT. Dsg intact
[2024-04-04 15:46] VITALS: BP 148/75; PULSE 73; O2SAT 98
--- NOTE | 2024-04-04 16:53 | CM ---
Initial Assessment completed with his Daughter, Nayeli Chen via phone
Pharmacy verified: [facility], [address], [place]
Patient lives alone in a multilevel home; 2nd floor bath has tub/w shower; daughter lives nearby to assist if needed
PLOF: independent with ambulation, stairs, and ADLs; Drives
SNF Utilization history: none
Transportation: daughter will transport home
DME: None
Plan: Discharge to home with home health services from [facility] for PT; referral sent to [facility] liaison via tiger text
[2024-04-04 17:58] LABS: Glucose - Point of Care 152 mg/dl (70-99)
[2024-04-04] MEDS: LR IV (20:36)
[2024-04-04 21:45] LABS: Glucose - Point of Care 153 mg/dl (70-99)
[2024-04-04] MEDS: DILAUDID 0.25 MG IV (23:25)
[2024-04-04 23:52] VITALS: BP 127/70
[2024-04-05] MEDS: LR 1000 IV ×2 (02:10→16:12)
[2024-04-05 05:42] LABS: % Basophils 0.2 % (0-2); % Eosinophils 0.4 % (0-6); % Immature Granulocytes 1.1 % (0-0.5); % Lymphocytes 10.2 % (20.5-51.1); % Monocytes 10.7 % (1.7-9.3); % Neutrophils 77.4 % (42.2-75.2); Absolute Immature Granulocytes 0.1 10^3/uL (0-0.05); Absolute Lymphocytes 0.8 10^3/uL (1.2-3.4); Absolute Monocytes 0.9 10^3/uL (0.1-0.6); Absolute Neutrophils 6.4 10^3/uL (1.4-6.5); Hematocrit 27.8 % (39.0-52.0); Hemoglobin 9.2 g/dL (13.0-18.0); Mean Corp Hgb Conc. 33.1 g/dL (33.0-37.0); Mean Corpuscular Hgb 31.1 pg (27.0-31.0); Mean Corpuscular Volume 93.9 fL (80.0-94.0); Mean Platelet Volume 10.4 fL (7.4-10.4); Nucleated Red Blood Cells % 0.4 % (-); Platelet Count 153 10^3/uL (130-400); Red Blood Cell Count 2.96 10^6/uL (4.70-6.10); Red Cell Dist. Width 13.9 % (11.5-14.5); White Blood Cell Count 8.2 10^3/uL (4.8-10.8)
[2024-04-05 06:07] LABS: ALT (SGPT) 32 U/L (0-50); AST (SGOT) 27 U/L (17-59); Albumin 2.5 g/dl (3.5-5.0); Alkaline Phosphatase 78 U/L (38-126); Blood Urea Nitrogen 27 mg/dl (9-20); Calcium 8.2 mg/dl (8.4-10.2); Carbon Dioxide 32 mmol/L (22-30); Chloride 101 mmol/L (98-107); Estimated Creatinine Clearance 44 ml/min; Glucose 138 mg/dl (70-99); Magnesium 2.1 mg/dl (1.6-2.3); Potassium 3.3 mmol/L (3.5-5.1); Sodium 138 mmol/L (135-145); Total Bilirubin 0.7 mg/dl (0.2-1.3); Total Protein 4.8 g/dl (6.3-8.2); eGFR > 60.00
[2024-04-05 07:15] VITALS: BP 139/68
[2024-04-05] MEDS: DILAUDID 0.25 MG IV (07:51)
[2024-04-05] MEDS: CYANOCOBALAMIN 1000 MCG IM (07:54)
[2024-04-05] MEDS: HEPARIN 5000 UNITS SC ×2 (08:06→20:17)
--- NOTE | 2024-04-05 08:14 | W.PN.HOSP.TC ---
Today's Communication/Plan
-
advance diet as per surgery
OOB to chair
resume Atenolol when tolerating diet
Assessment / Plan
Assessment / Plan
Pancreatic Head Mass Status Post Whipple Surgery on March 31, 2024
Large multicystic nodules in the head of the pancreas extending to the uncinate process
Pancreatic cysts/pancreatic cancer
Leukocytosis
-Whipple surgery on 03/31/24 -- was a 6 hours surgery
-Type and Screen and blood consent already obtained prior to surgery, as per Dr. Lee
-Monitor H&H Hgb 10.7-->10.9-->10.6-->11.1-->11.0-->9.5-->9.2
-Iron sat 14%, Ferritin 97.6
-Toradol ordered by Dr. Lee stopped
WBC 11.1-->12.9-->13.6-->7.7-->5.9-->8.2k
-NGT removed, pt tolerating, potential advance from clears to full liquids in near future
-Pulmonary toilet
-OOB to chair
Suspected Acute Blood Loss Anemia
Vitamin B12 close to low range @287
-IV iron while inpatient
-Supplement Vitamin B12 IM 1000 daily
Elevated Hepatic Transaminases
AST 86-->79-->59-->46-->27
-resolved
History of Episode Atypical Chest Pain
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
SVT
NSVT
History of loop recorder placement
PACs
PVCs (sees cardiology at [place])
History of cardiac rhythm pauses
-Patient was on on Atenolol 12.5 mg in the morning as per outpatient records
BP 120-160/68-95
Once tolerating oral intake, will plan on resuming
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
AAA (sees a vascular surgeon at [place])
-Based on outside vascular surgeon records, AAA size is 4.6
-Sees Vascular Surgeon Dr. Vázquez at [place]
-Planned for repeat imaging in April 2024
-Closely follow-up with Dr. Shannon Vázquez MD, outpatient
DM
-Accuchecks Q6H
-Start Diabetic, Low Sodium diet when patient is not NPO anymore
glu 115-129
HTN
-Continue Losartan when able to take PO
-Outpatient cardiology records show that patient takes Losartan 25 mg in the AM and 37.5 mg in the PM (was on 25 mg BID)
-Per records, patient gets dry cough with Lisinopril
-Previously used to take HCTZ, but no longer
-Low sodium diet when diet is resumed
HLD
-Continue home Atorvastatin when able
BPH
-Continue Flomax when able to take PO
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
-No cardioembolic source was found at that time
-Continue Aspirin, Plavix and Statin when able to take PO
resume ASA/Plavix when cleared by Surgery
Varicose veins
?skin cancer?
History of nephrolithiasis
DVT PPx: SCDs
Code Status: Full Code
PT/OT, encourage OOB to chair
Pt was living alone prior to admission (), will probably benefit from short term SNF post dc
Anticipated Discharge: > 48 hours
Subjective/Interval History
-
Date of Service: April 05, 2024
Still not passing significant flatus
Objective Data
-
Labs:
Laboratory Results
04/05/24
05:15
WBC 8.2
Hgb 9.2 L
Hct 27.8 L
Plt Count 153
Sodium 138
Potassium 3.3 L
Chloride 101
Carbon Dioxide 32 H
BUN 27 H
Creatinine 1.0
Glucose 138 H
Calcium 8.2 L
Total Bilirubin 0.7
AST 27
ALT 32
Alkaline Phosphatase 78
Vital Signs:
Vital Signs
Temp Pulse Resp BP Pulse Ox
98.6 F 60 18 139/68 98
04/05/24 07:15 04/05/24 07:15 04/05/24 07:15 04/05/24 07:15 04/05/24 07:15
I&O
04/04/24 04/05/24 04/06/24
06:59 06:59 06:59
Intake Total 980 / 980 3180 / 3180
Output Total 1170 / 1170 747 / 747
Balance -190 / -190 2433 / 2433
Review of Systems
-
History Source: Patient
Constitutional: Denies Fever
EENT: Reports No Symptoms Reported
Respiratory: Reports No Symptoms
Cardiac: Reports No Symptoms
Abdomen/GI: Reports Abdominal Pain (mild) and Constipated (no stool or flatus); Denies Nausea or Vomiting
Musculoskeletal: Reports No Symptoms
Neuro: Reports No Symptoms
Physical Exam
-
General: Well Developed, Well Nourished and No Apparent Distress
HEENT: Normocephalic, Atraumatic and Moist Mucous Membranes
Respiratory: Clear to Auscultation (shallow respirations); Negative Wheezes, Rales or Rhonchi
Cardiac: Regular Rhythm and S1/S2
GI: Soft, Normal Bowel Sounds (BS much more actietoay), Tender (mild tenderness), Distended (mild distention) and Other ([address])
Neuro: Awake, Alert and Oriented
[2024-04-05] MEDS: FERRLECIT 110 MG IV (14:39)
--- NOTE | 2024-04-05 14:57 | CM ---
Discharge Plan of Care: [facility], PT/OT. Referral forwarded via careport and TT.
[2024-04-05 15:15] VITALS: BP 157/90
[2024-04-05 15:45] VITALS: BP 157/90; PULSE 96; O2SAT 96
[2024-04-05 16:10] VITALS: BP 157/90; PULSE 96; O2SAT 96
--- NOTE | 2024-04-05 16:17 | W.PN.GENERIC ---
Assessment / Plan
-
S/p Whipple procedure POD # 5
Stable. Tolerating clears. Will advance diet to full liquid
Will start thorazine for hiccups
Continue ambulation
JPs with min output
Await path
Physician Progress Note
Subjective
c/o hiccups. O/w good pain control. Ambulating without any problems. Tolerating clears
Objective
Vital Signs
Temp Pulse Resp BP Pulse Ox
99.0 F 96 18 157/90 96
04/05/24 15:15 04/05/24 15:15 04/05/24 15:15 04/05/24 15:15 04/05/24 15:15
Lab Results
04/05/24 05:15
04/05/24 05:15
Abdomen - soft ND NT. Incision - CDI
OFELIA drain min ouput
[2024-04-05] MEDS: THORAZINE 25 MG PO (16:35)
[2024-04-05] MEDS: ATIVAN 0.5 MG IV (18:38)
[2024-04-05] MEDS: COLACE 100 MG PO (20:17)
[2024-04-05] MEDS: PEPCID 20 MG IV (21:28)
[2024-04-05] MEDS: NSS (PRESERVATIVE FREE) 8 ML IV (21:30)
[2024-04-05 23:25] VITALS: BP 147/72
[2024-04-06] MEDS: THORAZINE 25 MG PO ×2 (00:39→09:43)
[2024-04-06] MEDS: TYLENOL 650 MG PO (00:40)
[2024-04-06] MEDS: LR 1000 IV (03:29)
[2024-04-06 05:44] LABS: % Basophils 0.2 % (0-2); % Eosinophils 0.5 % (0-6); % Immature Granulocytes 1.6 % (0-0.5); % Monocytes 9.8 % (1.7-9.3); % Neutrophils 78.9 % (42.2-75.2); Absolute Immature Granulocytes 0.1 10^3/uL (0-0.05); Absolute Lymphocytes 0.6 10^3/uL (1.2-3.4); Absolute Monocytes 0.6 10^3/uL (0.1-0.6); Absolute Neutrophils 5.1 10^3/uL (1.4-6.5); Hemoglobin 8.7 g/dL (13.0-18.0); Mean Corp Hgb Conc. 33.5 g/dL (33.0-37.0); Mean Corpuscular Volume 92.5 fL (80.0-94.0); Mean Platelet Volume 10.5 fL (7.4-10.4); Nucleated Red Blood Cells % 0.8 % (-); Platelet Count 141 10^3/uL (130-400); Red Blood Cell Count 2.81 10^6/uL (4.70-6.10); White Blood Cell Count 6.4 10^3/uL (4.8-10.8)
[2024-04-06 06:19] LABS: ALT (SGPT) 41 U/L (0-50); AST (SGOT) 38 U/L (17-59); Albumin 2.2 g/dl (3.5-5.0); Alkaline Phosphatase 133 U/L (38-126); Blood Urea Nitrogen 22 mg/dl (9-20); Calcium 7.8 mg/dl (8.4-10.2); Carbon Dioxide 27 mmol/L (22-30); Chloride 104 mmol/L (98-107); Estimated Creatinine Clearance 44 ml/min; Glucose 125 mg/dl (70-99); Potassium 3.2 mmol/L (3.5-5.1); Sodium 136 mmol/L (135-145); Total Bilirubin 1.1 mg/dl (0.2-1.3); Total Protein 4.3 g/dl (6.3-8.2); eGFR > 60.00
[2024-04-06 07:20] VITALS: BP 136/70
[2024-04-06] MEDS: HEPARIN 5000 UNITS SC ×2 (09:39→21:26)
[2024-04-06] MEDS: COLACE 100 MG PO ×2 (09:41→21:26)
[2024-04-06] MEDS: CYANOCOBALAMIN 1000 MCG IM (09:41)
--- NOTE | 2024-04-06 10:09 | W.PN.HOSP.TC ---
Today's Communication/Plan
-
off IVF
completed Fe supplement
Assessment / Plan
Assessment / Plan
Pancreatic Head Mass Status Post Whipple Surgery on March 31, 2024
Large multicystic nodules in the head of the pancreas extending to the uncinate process
Pancreatic cysts/pancreatic cancer
Leukocytosis
-Whipple surgery on 03/31/24 -- was a 6 hours surgery
-Type and Screen and blood consent already obtained prior to surgery, as per Dr. Lee
-Monitor H&H Hgb 10.7-->10.9-->10.6-->11.1-->11.0-->9.5-->9.2-->8.7
-Iron sat 14%, Ferritin 97.6
-Toradol ordered by Dr. Lee stopped
WBC 11.1-->12.9-->13.6-->7.7-->5.9-->8.2-->6.2k
-now on full liquids in near future
-Pulmonary toilet
-OOB to chair
having frequent hiccups
Suspected Acute Blood Loss Anemia
Vitamin B12 close to low range @287
-IV iron while inpatient
-Supplement Vitamin B12 IM 1000 daily
Elevated Hepatic Transaminases
AST 86-->79-->59-->46-->27
-resolved
History of Episode Atypical Chest Pain
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
SVT
NSVT
History of loop recorder placement
PACs
PVCs (sees cardiology at [place])
History of cardiac rhythm pauses
-Patient was on on Atenolol 12.5 mg in the morning as per outpatient records
BP 120-160/68-95
Once tolerating oral intake, will plan on resuming
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
AAA (sees a vascular surgeon at [place])
-Based on outside vascular surgeon records, AAA size is 4.6
-Sees Vascular Surgeon Dr. Vázquez at [place]
-Planned for repeat imaging in April 2024
-Closely follow-up with Dr. Shannon Vázquez MD, outpatient
DM
-Accuchecks Q6H
-Start Diabetic, Low Sodium diet when patient is not NPO anymore
glu 115-129
HTN
-Continue Losartan when able to take PO
-Outpatient cardiology records show that patient takes Losartan 25 mg in the AM and 37.5 mg in the PM (was on 25 mg BID)
-Per records, patient gets dry cough with Lisinopril
-Previously used to take HCTZ, but no longer
-Low sodium diet when diet is resumed
HLD
-Continue home Atorvastatin when able
BPH
-Continue Flomax when able to take PO
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
-No cardioembolic source was found at that time
-Continue Aspirin, Plavix and Statin when able to take PO
resume ASA/Plavix when cleared by Surgery
Varicose veins
?skin cancer?
History of nephrolithiasis
DVT PPx: SCDs
Code Status: Full Code
PT/OT, encourage OOB to chair
Pt was living alone prior to admission (), will probably benefit from short term SNF post dc
Anticipated Discharge: > 48 hours
Subjective/Interval History
-
Date of Service: April 06, 2024
Still with hiccups
Objective Data
-
Labs:
Laboratory Results
04/06/24
05:28
WBC 6.4
Hgb 8.7 L
Hct 26.0 L
Plt Count 141
Sodium 136
Potassium 3.2 L
Chloride 104
Carbon Dioxide 27
BUN 22 H
Creatinine 1.0
Glucose 125 H
Calcium 7.8 L
Total Bilirubin 1.1
AST 38
ALT 41
Alkaline Phosphatase 133 H
Vital Signs:
Vital Signs
Temp Pulse Resp BP Pulse Ox
99.7 F 71 18 136/70 94
04/06/24 07:20 04/06/24 07:20 04/06/24 07:20 04/06/24 07:20 04/06/24 07:20
I&O
04/05/24 04/06/24 04/07/24
06:59 06:59 06:59
Intake Total 3180 / 3180 3290 / 3290
Output Total 747 / 747 1090 / 1090
Balance 2433 / 2433 2200 / 2200
Review of Systems
-
History Source: Patient
Constitutional: Denies Fever
EENT: Reports No Symptoms Reported
Respiratory: Reports No Symptoms
Cardiac: Reports No Symptoms
Abdomen/GI: Reports Abdominal Pain (mild) and Constipated (no stool yet, passing some flatus); Denies Nausea or Vomiting
Musculoskeletal: Reports No Symptoms
Neuro: Reports No Symptoms
Physical Exam
-
General: Well Developed, Well Nourished and No Apparent Distress
HEENT: Normocephalic, Atraumatic and Moist Mucous Membranes
Respiratory: Clear to Auscultation (shallow respirations); Negative Wheezes, Rales or Rhonchi
Cardiac: Regular Rhythm and S1/S2
GI: Soft, Normal Bowel Sounds (BS much more active), Tender (mild tenderness), Distended (mild distention) and Other ([address])
Neuro: Awake, Alert and Oriented
--- NOTE | 2024-04-06 13:53 | CM ---
Full liquid diet. Discharge Plan of Care remains: Home with [facility] VN and PT/OT services.
--- NOTE | 2024-04-06 14:15 | VNURNOTE ---
Home Health Liaison met with patient at 1200 to discuss [facility] nurse/therapy, visits, schedule and homebound status. Patient is agreeable and understands that visits at home will be 2-3 x per week to assess and teach medical management.
[facility] brochure provided with contact information. Patient is aware that [facility] will contact them for start of care in 1-2 days after discharge from .
[facility] referral completed and accepted previously in [facility].
[2024-04-06 15:15] VITALS: BP 133/73
[2024-04-06] MEDS: D5/0.45%NSS with KCL 20 MEQ 1000 IV (16:04)
--- NOTE | 2024-04-06 18:22 | W.PN.GENERIC ---
Assessment / Plan
-
S/p Whipple procedure POD #6
Fevers earlier this AM noted but remains afebrile since then
His fatigue may be due to thorazine and ativan, which were started for hiccups
will stop
increase PEPCID to bid
Increase to diet to regular
OOB and ambulate
Await pathology results
Physician Progress Note
Subjective
Feeling tired but hiccups less frequent
Objective
Vital Signs
Temp Pulse Resp BP Pulse Ox
97.4 F 102 18 133/73 96
04/06/24 15:15 04/06/24 15:15 04/06/24 15:15 04/06/24 15:15 04/06/24 15:15
Lab Results
04/06/24 05:28
04/06/24 05:28
Abdomen - soft NT, ND. Incision - CDI
JPs intact and output continues to decrease
[2024-04-06] MEDS: PEPCID 20 MG IV (21:27)
[2024-04-06] MEDS: NSS (PRESERVATIVE FREE) 8 ML IV (21:27)
[2024-04-06 23:33] VITALS: BP 140/89
[2024-04-07] MEDS: ANESTHETIC LOZENGE 1 LOZENGE PO (00:25)
[2024-04-07] MEDS: TYLENOL 650 MG PO (00:25)
--- NOTE | 2024-04-07 01:58 | PTCARENOTE ---
TT INSURANCE SALES REPRESENTATIVE regarding pt temps - INSURANCE SALES REPRESENTATIVE ordered blood cxs, UA/C&S, and continue use of IS. Assessment onging.
[2024-04-07 02:20] LABS: % Basophils 0.1 % (0-2); % Immature Granulocytes 1.1 % (0-0.5); % Lymphocytes 10.7 % (20.5-51.1); % Monocytes 11.9 % (1.7-9.3); % Neutrophils 75.2 % (42.2-75.2); Absolute Eosinophils 0.1 10^3/uL (0-0.7); Absolute Immature Granulocytes 0.1 10^3/uL (0-0.05); Absolute Lymphocytes 0.8 10^3/uL (1.2-3.4); Absolute Monocytes 0.8 10^3/uL (0.1-0.6); Absolute Neutrophils 5.3 10^3/uL (1.4-6.5); Hematocrit 28.8 % (39.0-52.0); Hemoglobin 9.3 g/dL (13.0-18.0); Mean Corp Hgb Conc. 32.3 g/dL (33.0-37.0); Mean Corpuscular Hgb 30.6 pg (27.0-31.0); Mean Corpuscular Volume 94.7 fL (80.0-94.0); Mean Platelet Volume 10.4 fL (7.4-10.4); Nucleated Red Blood Cells % 0.4 % (-); Platelet Count 147 10^3/uL (130-400); Red Blood Cell Count 3.04 10^6/uL (4.70-6.10); Red Cell Dist. Width 14.1 % (11.5-14.5)
[2024-04-07 02:58] LABS: ALT (SGPT) 47 U/L (0-50); AST (SGOT) 40 U/L (17-59); Albumin 2.3 g/dl (3.5-5.0); Alkaline Phosphatase 148 U/L (38-126); Blood Urea Nitrogen 20 mg/dl (9-20); Calcium 7.6 mg/dl (8.4-10.2); Carbon Dioxide 27 mmol/L (22-30); Chloride 103 mmol/L (98-107); Estimated Creatinine Clearance 44 ml/min; Glucose 178 mg/dl (70-99); Potassium 3.4 mmol/L (3.5-5.1); Sodium 135 mmol/L (135-145); Total Protein 4.5 g/dl (6.3-8.2); eGFR > 60.00
[2024-04-07] MEDS: D5/0.45%NSS with KCL 20 MEQ 1000 IV (05:26)
[2024-04-07 06:00] VITALS: BMI 26.3
[2024-04-07 06:10] LABS: Urine Albumin 1+ (Neg - Trace); Urine Bilirubin 1+ (Negative); Urine Character Slightly Cloudy (Clear); Urine Color Amber; Urine Glucose Negative (Negative); Urine Ketone Negative (Negative); Urine Leukocyte Trace (Negative); Urine Nitrite Negative (Negative); Urine Occult Blood 1+ (Negative); Urine Specific Gravity 1.015 (<1.030); Urine Urobilinogen 2+ (Neg - 1+)
[2024-04-07 07:25] VITALS: BP 140/84
[2024-04-07] MEDS: TENORMIN 25 MG PO ×2 (07:43→21:10)
[2024-04-07] MEDS: COLACE 100 MG PO ×2 (07:43→21:06)
[2024-04-07] MEDS: CYANOCOBALAMIN 1000 MCG IM (07:44)
[2024-04-07] MEDS: HEPARIN 5000 UNITS SC ×2 (07:44→21:05)
[2024-04-07] MEDS: PROTONIX 20 MG PO ×2 (07:44→21:06)
[2024-04-07] MEDS: ASPIR LOW (ENTERIC COATED) 81 MG PO (07:44)
[2024-04-07 07:47] LABS: Urine Mucus Few
[2024-04-07 07:50] LABS: Urine Bacteria Moderate (Negative)
[2024-04-07 08:42] LABS: Glucose - Point of Care 195 mg/dl (70-99)
--- NOTE | 2024-04-07 10:20 | W.PN.GENERIC ---
Assessment / Plan
-
S/p Whipple procedure POD 7
Poor appetite
The family will bring food from home
oob and ambulate
Right OFELIA dc's
Will chest amylase level from the left OFELIA - if amylase level is low, will dc it
Fevers may be secondary to atelectasis
Encourage ambulation
If fever continues, will consider antibiotics
Await path.
Physician Progress Note
Subjective
More alert this AM. Had some fevers and the cultures sent.
Objective
Vital Signs
Temp Pulse Resp BP Pulse Ox
99.6 F 97 18 140/84 100
04/07/24 07:25 04/07/24 07:43 04/07/24 07:25 04/07/24 07:43 04/07/24 07:25
Lab Results
04/07/24 02:10
04/07/24 02:10
Abdomen - soft ND. Incision - CDI
JPs intact
--- NOTE | 2024-04-07 10:36 | W.PN.HOSP.TC ---
Today's Communication/Plan
-
diet has been advanced, passing limited amount of flatus, no stool
Assessment / Plan
Assessment / Plan
Pancreatic Head Mass Status Post Whipple Surgery on March 31, 2024
Large multicystic nodules in the head of the pancreas extending to the uncinate process
Pancreatic cysts/pancreatic cancer
Leukocytosis
-Whipple surgery on 03/31/24 -- was a 6 hours surgery
-Type and Screen and blood consent already obtained prior to surgery, as per Dr. Lee
-Monitor H&H Hgb 10.7-->10.9-->10.6-->11.1-->11.0-->9.5-->9.2-->8.7-->9.3
-Iron sat 14%, Ferritin 97.6
-Toradol ordered by Dr. Lee stopped
WBC 11.1-->12.9-->13.6-->7.7-->5.9-->8.2-->6.2-->7.0k
-now on full liquids in near future
-Pulmonary toilet
-OOB to chair
having frequent hiccups
Suspected Acute Blood Loss Anemia
Vitamin B12 close to low range @287
-IV iron while inpatient
-Supplement Vitamin B12 IM 1000 daily
Elevated Hepatic Transaminases
AST 86-->79-->59-->46-->27
-resolved
History of Episode Atypical Chest Pain
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
SVT
NSVT
History of loop recorder placement
PACs
PVCs (sees cardiology at [place])
History of cardiac rhythm pauses
-Patient was on Atenolol 25 mg qam and 37.5 mg in the morning as per outpatient records
BP 120-160/68-95
Will resume Atenolol at 25 mg bid as of 04/07
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
AAA (sees a vascular surgeon at [place])
-Based on outside vascular surgeon records, AAA size is 4.6
-Sees Vascular Surgeon Dr. Vázquez at [place]
-Planned for repeat imaging in April 2024
-Closely follow-up with Dr. Shannon Vázquez MD, outpatient
DM
-Accuchecks Q6H
-Start Diabetic, Low Sodium diet when patient is not NPO anymore
glu 115-129
HTN
-Resume Losartan when able to take PO
-Outpatient cardiology records show that patient takes Losartan 12.5 mg bid
-Per records, patient gets dry cough with Lisinopril
-Previously used to take HCTZ, but no longer
-Low sodium diet when diet is resumed
HLD
-Continue home Atorvastatin when able
BPH
-Continue Flomax when able to take PO
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
-No cardioembolic source was found at that time
-Continue Aspirin, Plavix and Statin when able to take PO
resume ASA/Plavix when cleared by Surgery
Varicose veins
?skin cancer?
History of nephrolithiasis
DVT PPx: SCDs
Code Status: Full Code
PT/OT, encourage OOB to chair
Pt was living alone prior to admission (), will probably benefit from short term SNF post dc
Anticipated Discharge: > 48 hours
Subjective/Interval History
-
Date of Service: April 07, 2024
Still feels need to move bowels and is unable to pass
Objective Data
-
Labs:
Laboratory Results
04/07/24
02:10
WBC 7.0
Hgb 9.3 L
Hct 28.8 L
Plt Count 147
Sodium 135
Potassium 3.4 L
Chloride 103
Carbon Dioxide 27
BUN 20
Creatinine 1.0
Glucose 178 H
Calcium 7.6 L
Total Bilirubin 1.0
AST 40
ALT 47
Alkaline Phosphatase 148 H
Vital Signs:
Vital Signs
Temp Pulse Resp BP Pulse Ox
99.6 F 97 18 140/84 100
04/07/24 07:25 04/07/24 07:43 04/07/24 07:25 04/07/24 07:43 04/07/24 07:25
I&O
04/06/24 04/07/24 04/08/24
06:59 06:59 06:59
Intake Total 3290 / 3290 1870 / 1870
Output Total 1090 / 1090 795 / 795
Balance 2200 / 2200 1075 / 1075
Review of Systems
-
History Source: Patient
Constitutional: Denies Fever
EENT: Reports No Symptoms Reported
Respiratory: Reports No Symptoms
Cardiac: Reports No Symptoms
Abdomen/GI: Reports Abdominal Pain (mild) and Constipated (no stool yet, passing some flatus); Denies Nausea or Vomiting
Musculoskeletal: Reports No Symptoms
Neuro: Reports No Symptoms
Physical Exam
-
General: Well Developed, Well Nourished and No Apparent Distress
HEENT: Normocephalic, Atraumatic and Moist Mucous Membranes
Respiratory: Clear to Auscultation (shallow respirations); Negative Wheezes, Rales or Rhonchi
Cardiac: Regular Rhythm and S1/S2
GI: Soft, Normal Bowel Sounds (BS much more active), Tender (mild tenderness), Distended (mild distention) and Other ([address])
Neuro: Awake, Alert and Oriented
--- NOTE | 2024-04-07 12:08 | OR.RPT ---
Operative Report
Operative Report
Patient Name: Carlos Gillette
Date of : 1940
Date of Operation: March 31, 2024
Preoperative Diagnosis: Pancreatic head cancer - C250
Postoperative Diagnosis: Same
Surgeon: Artur Lee M.D.
Operation: Whipple Procedure � 31541
Anesthesia: General Anesthesia
Estimated Blood Loss: 150 cc
Drains: Two OFELIA drains near the choledochojejunostomy and pancreaticojejunostomy anastomoses
Specimen: Gallbladder, distal stomach with duodenum and pancreatic head.
Findings: Multicystic pancreatic head tumor
Complications: None
Procedure:
The patient was taken to the operating room and placed in the usual supine position. After adequate general endotracheal anesthesia was established, the patient�s abdomen was prepped and draped in the usual sterile fashion. An upper midline incision
was made with a #10 blade. This was taken through the skin into the subcutaneous tissue. The fascia was divided with electrocautery, and the abdomen was entered. At this time, the abdomen was explored, and no obvious diseases were noted in her
liver, peritoneal lining, or other organs in the abdomen. The entire bowel was examined without any obvious evidence of metastatic disease. Next, attention was turned to the patient�s pancreas. The lesser sac was entered, and the Yokasta maneuver was
performed. The portal structures were carefully dissected, and the mass was noted in the head of the pancreas. The mass was easily from the underlying portal vein. Therefore, the decision was made to proceed with pancreaticoduodenectomy.
First, cholecystectomy was performed by resecting the gallbladder off the liver bed, and the cystic duct and artery were identified, transected, and ligated with #3-0 silk suture ligature. The gallbladder was sent to the pathology department for a
permanent section. Next, the common bile duct was transected with a #15 blade. The distal stomach was also transected with a 3.5 mm PIA stapler. After completely detaching the neck of the pancreas from the portal vein, this was transected with a #15
blade. The proximal jejunum was transected with a 3.5 mm PIA stapler. The ligament of Treitz was dissected. The specimen was resected off the retroperitoneal attachment and sent to Pathology.
After obtaining adequate hemostasis, the anastomoses were performed. First, the pancreatic stump was anastomosed to the jejunum in 2 layers. First, the enterotomy was performed in the proximal jejunum, and the edge of the pancreas was anastomosed to
the full thickness of the bowel using #5-0 Prolene. Then, this anastomosis was imbricated with #3-0 silk sutures in an interrupted fashion. Second, the choledochojejunostomy was performed using a #4-0 PDS suture in an interrupted fashion. Third, the
gastrojejunostomy was performed using [id number] end-to-end anastomosis using 3.5mm PIA and then with a 3.5 mm TIA stapler. After completing the anastomoses, further hemostasis was obtained. One OFELIA drain was placed through a separate right
quadrant abdominal wall incision, and this was placed in the right upper quadrant near the choledochojejunostomy anastomosis. The second OFELIA drain was placed through a separate left quadrant abdominal wall incision, and this was placed near the
pancreaticojejunostomy anastomosis. Both drains were anchored to the skin using #3-0 nylon sutures.
After obtaining good hemostasis, the abdomen was closed. The fascia was approximated with #1 Vicryl in a running fashion, and the skin was reapproximated with augustina. The patient tolerated the procedure well. The final instrument, needle, and
sponge counts were correct. The patient was extubated and transferred to the recovery room.
[2024-04-07 12:10] LABS: Body Fluid Amylase > 10000 U/L
[2024-04-07 13:51] VITALS: BMI 26.3
[2024-04-07 14:41] LABS: ALT (SGPT) 55 U/L (0-50); AST (SGOT) 42 U/L (17-59); Albumin 2.6 g/dl (3.5-5.0); Alkaline Phosphatase 175 U/L (38-126); Blood Urea Nitrogen 19 mg/dl (9-20); Calcium 8.3 mg/dl (8.4-10.2); Carbon Dioxide 28 mmol/L (22-30); Chloride 101 mmol/L (98-107); Estimated Creatinine Clearance 40 ml/min; Glucose 149 mg/dl (70-99); Magnesium 1.9 mg/dl (1.6-2.3); Phosphorus 2.9 mg/dl (2.5-4.5); Potassium 3.4 mmol/L (3.5-5.1); Sodium 135 mmol/L (135-145); Total Bilirubin 1.2 mg/dl (0.2-1.3); Triglycerides 96 mg/dl (10-149); eGFR > 60.00
[2024-04-07 15:25] VITALS: BP 150/84
--- NOTE | 2024-04-07 15:28 | CM ---
Discharge Plan of Care: Therapy recommending HH. Accepted by [facility] for VN, PT/OT.
[2024-04-07 16:23] VITALS: BP 146/81; PULSE 70; O2SAT 97
[2024-04-07] MEDS: SANDOSTATIN 50 MCG IV ×2 (17:37→21:12)
[2024-04-07 18:26] VITALS: BMI 25.5
[2024-04-07] MEDS: Parenteral Nutrition, Central 1200 IV (21:10)
[2024-04-07] MEDS: NSS (PRESERVATIVE FREE) IV (21:12)
[2024-04-07 23:35] VITALS: BP 161/82
[2024-04-07 23:57] LABS: Glucose - Point of Care 212 mg/dl (70-99)
[2024-04-08 06:00] VITALS: BMI 25.9
[2024-04-08 06:02] LABS: % Basophils 0.1 % (0-2); % Eosinophils 2.8 % (0-6); % Lymphocytes 9.5 % (20.5-51.1); % Neutrophils 76.6 % (42.2-75.2); Absolute Eosinophils 0.2 10^3/uL (0-0.7); Absolute Immature Granulocytes 0.1 10^3/uL (0-0.05); Absolute Lymphocytes 0.8 10^3/uL (1.2-3.4); Absolute Monocytes 0.8 10^3/uL (0.1-0.6); Mean Corp Hgb Conc. 32.1 g/dL (33.0-37.0); Mean Corpuscular Hgb 30.9 pg (27.0-31.0); Mean Corpuscular Volume 96.2 fL (80.0-94.0); Mean Platelet Volume 10.9 fL (7.4-10.4); Nucleated Red Blood Cells % 0 % (-); Platelet Count 186 10^3/uL (130-400); Red Blood Cell Count 2.91 10^6/uL (4.70-6.10); Red Cell Dist. Width 14.1 % (11.5-14.5); White Blood Cell Count 7.9 10^3/uL (4.8-10.8)
[2024-04-08 06:07] LABS: Glucose - Point of Care 185 mg/dl (70-99)
[2024-04-08 06:30] LABS: ALT (SGPT) 43 U/L (0-50); AST (SGOT) 30 U/L (17-59); Albumin 2.2 g/dl (3.5-5.0); Alkaline Phosphatase 134 U/L (38-126); Blood Urea Nitrogen 22 mg/dl (9-20); Carbon Dioxide 27 mmol/L (22-30); Chloride 103 mmol/L (98-107); Estimated Creatinine Clearance 44 ml/min; Glucose 176 mg/dl (70-99); Magnesium 2.1 mg/dl (1.6-2.3); Phosphorus 3.3 mg/dl (2.5-4.5); Potassium 3.9 mmol/L (3.5-5.1); Sodium 136 mmol/L (135-145); Total Bilirubin 0.7 mg/dl (0.2-1.3); Total Protein 4.4 g/dl (6.3-8.2); eGFR > 60.00
[2024-04-08 07:22] VITALS: BP 128/68
[2024-04-08] MEDS: TYLENOL 650 MG PO (08:08)
[2024-04-08] MEDS: SANDOSTATIN 50 MCG IV (08:09)
[2024-04-08] MEDS: CYANOCOBALAMIN 1000 MCG IM (08:09)
[2024-04-08] MEDS: PROTONIX 20 MG PO ×2 (08:09→19:37)
[2024-04-08] MEDS: ASPIR LOW (ENTERIC COATED) 81 MG PO (08:09)
[2024-04-08] MEDS: HEPARIN 5000 UNITS SC ×2 (08:10→19:37)
[2024-04-08] MEDS: COLACE 100 MG PO (08:10)
[2024-04-08] MEDS: TENORMIN PO (08:27)
--- NOTE | 2024-04-08 09:07 | W.PN.HOSP.TC ---
Today's Communication/Plan
-
SSI coverage
change Protonix to IV while NPO
follow labs
stop Atenolol while NPO
Assessment / Plan
Assessment / Plan
Pancreatic Head Mass Status Post Whipple Surgery on March 31, 2024
Large multicystic nodules in the head of the pancreas extending to the uncinate process
Pancreatic cysts/pancreatic cancer
Leukocytosis
-Whipple surgery on 03/31/24
-Type and Screen and blood consent already obtained prior to surgery, as per Dr. Lee
-Monitor H&H Hgb 10.7-->10.9-->10.6-->11.1-->11.0-->9.5-->9.2-->8.7-->9.3-->9.0
-Iron sat 14%, Ferritin 97.6
-Toradol ordered by Dr. Lee stopped
WBC 11.1-->12.9-->13.6-->7.7-->5.9-->8.2-->6.2-->7.0-->7.9k
- back to being NPO with TPN
-Pulmonary toilet
-OOB to chair
having frequent hiccups
thorazine prn
TPN started with alb 2.2
With pt NPO, will change Protonix to IV
Suspected Acute Blood Loss Anemia
Vitamin B12 close to low range @287
-IV iron while inpatient completed
-Supplement Vitamin B12 IM 1000 mcg, started on 04/01. Will stop
glu trending up while on TPN
will add SSI coverage
Elevated Hepatic Transaminases
AST 86-->79-->59-->46-->27
-resolved
History of Episode Atypical Chest Pain
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
SVT
NSVT
History of loop recorder placement
PACs
PVCs (sees cardiology at [place])
History of cardiac rhythm pauses
-Patient was on Atenolol 25 mg qam and 37.5 mg in the morning as per outpatient records (AISHA Woodard called dgt and confirmed dose)
BP 120-160/68-95
resumed Atenolol at 25 mg bid as of 04/07, will put hold parameters when resumed, for now will stop while NPO. Start low dose IV Metoprolol
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
AAA (sees a vascular surgeon at [place])
-Based on outside vascular surgeon records, AAA size is 4.6
-Sees Vascular Surgeon Dr. Vázquez at [place]
-Planned for repeat imaging in April 2024
-Closely follow-up with Dr. Shannon Vázquez MD, outpatient
DM
-Accuchecks Q6H
-Start Diabetic, Low Sodium diet when patient is not NPO anymore
glu 115-129
HTN
-Resume Losartan when able to take PO
-Outpatient cardiology records show that patient takes Losartan 12.5 mg bid
-Per records, patient gets dry cough with Lisinopril
-Previously used to take HCTZ, but no longer
-Low sodium diet when diet is resumed
HLD
-Continue home Atorvastatin when able
BPH
-Continue Flomax when able to take PO
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
-No cardioembolic source was found at that time
-Continue Aspirin, Plavix and Statin when able to take PO
resume ASA/Plavix when cleared by Surgery
Varicose veins
?skin cancer?
History of nephrolithiasis
DVT PPx: SCDs
Code Status: Full Code
PT/OT, encourage OOB to chair
Pt was living alone prior to admission (), will probably benefit from short term SNF post dc
Anticipated Discharge: > 48 hours
Subjective/Interval History
-
Date of Service: April 08, 2024
Limited flatus, no stool. Started on TPN
Objective Data
-
Labs:
Laboratory Results
04/08/24
05:13
WBC 7.9
Hgb 9.0 L
Hct 28.0 L
Plt Count 186 D
Sodium 136
Potassium 3.9
Chloride 103
Carbon Dioxide 27
BUN 22 H
Creatinine 1.0
Glucose 176 H
Calcium 8.0 L
Total Bilirubin 0.7
AST 30
ALT 43
Alkaline Phosphatase 134 H
Vital Signs:
Vital Signs
Temp Pulse Resp BP Pulse Ox
99.2 F 55 17 128/68 96
04/08/24 07:22 04/08/24 08:27 04/08/24 07:22 04/08/24 07:22 04/08/24 07:22
I&O
04/07/24 04/08/24 04/09/24
06:59 06:59 06:59
Intake Total 1870 / 1870 680 / 680
Output Total 795 / 795 490 / 490
Balance 1075 / 1075 190 / 190
Review of Systems
-
History Source: Patient
Constitutional: Denies Fever
EENT: Reports No Symptoms Reported
Respiratory: Reports No Symptoms
Cardiac: Reports No Symptoms
Abdomen/GI: Reports Abdominal Pain (mild) and Constipated (no stool yet, passing some flatus); Denies Nausea or Vomiting
Musculoskeletal: Reports No Symptoms
Neuro: Reports No Symptoms
Physical Exam
-
General: Well Developed, Well Nourished and No Apparent Distress
HEENT: Normocephalic, Atraumatic and Moist Mucous Membranes
Respiratory: Clear to Auscultation (shallow respirations); Negative Wheezes, Rales or Rhonchi
Cardiac: Regular Rhythm and S1/S2
GI: Soft, Normal Bowel Sounds (BS moderately reduced), Tender (mild tenderness), Distended (mild distention) and Other ([address])
Neuro: Awake, Alert and Oriented
[2024-04-08] MEDS: PROTONIX IV 40 MG IV (09:57)
[2024-04-08] MEDS: NSS (PRESERVATIVE FREE) 10 ML IV (09:57)
[2024-04-08 11:24] VITALS: BP 158/78
--- NOTE | 2024-04-08 11:46 | W.PN.GENERIC ---
Assessment / Plan
-
S/p WHipple Procedure POD #8
Probable pancreaticojejunostomy leak - high amylase level in the left OFELIA peritoneal fluid
TPN, NPO
Ok to take meds with sips of water
Remains stable
Will ask case management service to see pt for home TPN, PT, OT, VNA
Continue current care
OOB and ambulate
Await path
Physician Progress Note
Subjective
Feeling better. Currently getting TPN
Objective
Vital Signs
Temp Pulse Resp BP Pulse Ox
98.2 F 57 17 158/78 96
04/08/24 11:24 04/08/24 11:24 04/08/24 11:24 04/08/24 11:24 04/08/24 11:24
Lab Results
04/08/24 05:13
04/08/24 05:13
Abdomen - soft, ND NT
Pul - dec bilaterally
Cor - RRR
[2024-04-08 12:07] LABS: Glucose - Point of Care 191 mg/dl (70-99)
[2024-04-08] MEDS: NOVOLOG FLEXPEN-LOW RESISTANCE 1 UNITS SC ×2 (12:08→17:52)
--- NOTE | 2024-04-08 13:53 | CM ---
Patient plan for discharge is home with [facility], patient will also need TPN per physician. CM requested consult for dietary if needed for script on TPN.
[2024-04-08 14:50] VITALS: BP 157/78
[2024-04-08] MEDS: SANDOSTATIN 50 MCG SC ×2 (15:21→21:04)
[2024-04-08 17:52] LABS: Glucose - Point of Care 150 mg/dl (70-99)
[2024-04-08] MEDS: TENORMIN 25 MG PO (19:43)
[2024-04-08] MEDS: Parenteral Nutrition, Central 1700 IV (21:15)
[2024-04-08 23:50] VITALS: BP 140/73
[2024-04-08 23:51] LABS: Glucose - Point of Care 239 mg/dl (70-99)
[2024-04-08] MEDS: NOVOLOG FLEXPEN-LOW RESISTANCE 2 UNITS SC (23:52)
--- NOTE | 2024-04-09 05:53 | VATNOTE ---
Upon drawing morning labs, this VAT RN noticed that right arm and hand are more swollen than the left. Primary RN at bedside and agrees the swelling in the right hand has increased since yesterday. [employer] notified, awaiting US. Will continue to monitor.
[2024-04-09 05:58] LABS: Glucose - Point of Care 242 mg/dl (70-99)
[2024-04-09 06:00] VITALS: BMI 25.3
[2024-04-09] MEDS: NOVOLOG FLEXPEN-LOW RESISTANCE 2 UNITS SC (06:06)
[2024-04-09 06:19] LABS: % Basophils 0.1 % (0-2); % Eosinophils 2.6 % (0-6); % Immature Granulocytes 1.7 % (0-0.5); % Lymphocytes 11.5 % (20.5-51.1); % Monocytes 9.3 % (1.7-9.3); % Neutrophils 74.8 % (42.2-75.2); Absolute Eosinophils 0.2 10^3/uL (0-0.7); Absolute Immature Granulocytes 0.1 10^3/uL (0-0.05); Absolute Lymphocytes 0.9 10^3/uL (1.2-3.4); Absolute Monocytes 0.7 10^3/uL (0.1-0.6); Absolute Neutrophils 5.7 10^3/uL (1.4-6.5); Hematocrit 25.5 % (39.0-52.0); Hemoglobin 8.4 g/dL (13.0-18.0); Mean Corp Hgb Conc. 32.9 g/dL (33.0-37.0); Mean Corpuscular Hgb 30.5 pg (27.0-31.0); Mean Corpuscular Volume 92.7 fL (80.0-94.0); Mean Platelet Volume 10.9 fL (7.4-10.4); Nucleated Red Blood Cells % 0 % (-); Platelet Count 214 10^3/uL (130-400); Red Blood Cell Count 2.75 10^6/uL (4.70-6.10); White Blood Cell Count 7.6 10^3/uL (4.8-10.8)
[2024-04-09 06:42] LABS: ALT (SGPT) 52 U/L (0-50); AST (SGOT) 48 U/L (17-59); Albumin 2.2 g/dl (3.5-5.0); Alkaline Phosphatase 156 U/L (38-126); Blood Urea Nitrogen 24 mg/dl (9-20); Calcium 7.7 mg/dl (8.4-10.2); Carbon Dioxide 28 mmol/L (22-30); Chloride 104 mmol/L (98-107); Estimated Creatinine Clearance 49 ml/min; Glucose 184 mg/dl (70-99); Magnesium 2.1 mg/dl (1.6-2.3); Potassium 3.8 mmol/L (3.5-5.1); Sodium 135 mmol/L (135-145); Total Bilirubin 0.6 mg/dl (0.2-1.3); Total Protein 4.4 g/dl (6.3-8.2); eGFR > 60.00
[2024-04-09 07:32] VITALS: BP 125/63
[2024-04-09] MEDS: TENORMIN 25 MG PO ×2 (08:07→20:23)
[2024-04-09] MEDS: HEPARIN 5000 UNITS SC (08:08)
[2024-04-09] MEDS: PROTONIX 20 MG PO ×2 (08:08→20:22)
[2024-04-09] MEDS: ASPIR LOW (ENTERIC COATED) 81 MG PO (08:09)
[2024-04-09] MEDS: SANDOSTATIN 50 MCG SC ×3 (08:10→21:00)
--- NOTE | 2024-04-09 10:27 | W.PN.GENERIC ---
Assessment / Plan
-
S/p Whipple Procedure POD #9 - overall stable
Pancreaticojej leak
NPO/TPN/Sandostatin/OFELIA drainage
Await HomeCare to be setup for dc
Continue current care.
Physician Progress Note
Subjective
No complaints except for some swelling. US showed small segment of thrombus in the distal cephalic vein. No hiccups or nausea or abdominal pain
Objective
Vital Signs
Temp Pulse Resp BP Pulse Ox
98.9 F 52 19 125/63 97
04/09/24 07:32 04/09/24 08:07 04/09/24 07:32 04/09/24 08:07 04/09/24 08:24
Lab Results
04/09/24 05:50
04/09/24 05:50
Abdomen - soft ND. Incision - CDI.
Right OFELIA - intact with purulent output
[2024-04-09 12:04] LABS: Body Fluid Amylase > 10000 U/L
--- NOTE | 2024-04-09 12:06 | W.PN.HOSP.TC ---
Today's Communication/Plan
-
TPN to continue
Assessment / Plan
Assessment / Plan
Pancreatic Head Mass Status Post Whipple Surgery on March 31, 2024
Large multicystic nodules in the head of the pancreas extending to the uncinate process
Pancreatic cysts/pancreatic cancer
Leukocytosis
-Whipple surgery on 03/31/24
-Type and Screen and blood consent already obtained prior to surgery, as per Dr. Lee
-Monitor H&H Hgb 10.7-->10.9-->10.6-->11.1-->11.0-->9.5-->9.2-->8.7-->9.3-->9.0-->8.4
-Iron sat 14%, Ferritin 97.6
-Toradol ordered by Dr. Lee stopped
WBC 11.1-->12.9-->13.6-->7.7-->5.9-->8.2-->6.2-->7.0-->7.9-->7.6k
- back to being NPO with TPN
-Pulmonary toilet
-OOB to chair
having frequent hiccups
thorazine prn
TPN started with alb 2.2
With pt NPO, will change Protonix to IV
Suspected Acute Blood Loss Anemia
Vitamin B12 close to low range @287
-IV iron while inpatient completed
-Supplement Vitamin B12 IM 1000 mcg, started on 04/01. Will stop
glu trending up while on TPN
will add SSI coverage
04/09 Superficial thrombus: Small segment of occlusive thrombus within the right cephalic vein within the distal forearm.
pt remains on Heparin 5000 q12h
Elevated Hepatic Transaminases
AST 86-->79-->59-->46-->27
-resolved
History of Episode Atypical Chest Pain
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
SVT
NSVT
History of loop recorder placement
PACs
PVCs (sees cardiology at [facility])
History of cardiac rhythm pauses
-Patient was on Atenolol 25 mg qam and 37.5 mg in the morning as per outpatient records (AISHA Woodard called dgt and confirmed dose)
BP 120-160/68-95
resumed Atenolol at 25 mg bid as of 04/07, Started low dose IV Metoprolol due to pt being NPO, Dr Lee said okay to use and switched back
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
AAA (sees a vascular surgeon at [facility])
-Based on outside vascular surgeon records, AAA size is 4.6
-Sees Vascular Surgeon Dr. Vázquez at [facility]
-Planned for repeat imaging in April 2024
-Closely follow-up with Dr. Shannon Vázquez MD, outpatient
DM
-Accuchecks Q6H
-Start Diabetic, Low Sodium diet when patient is not NPO anymore
glu 150-242 on TPN and SSI
HTN
-Resume Losartan when able to take PO
-Outpatient cardiology records show that patient takes Losartan 12.5 mg bid
-Per records, patient gets dry cough with Lisinopril
-Previously used to take HCTZ, but no longer
-Low sodium diet when diet is resumed
HLD
-Continue home Atorvastatin when able
BPH
-Continue Flomax when able to take PO
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
-No cardioembolic source was found at that time
-Continue Aspirin, Plavix and Statin when able to take PO
resume ASA/Plavix when cleared by Surgery
Varicose veins
?skin cancer?
History of nephrolithiasis
DVT PPx: SCDs
Code Status: Full Code
PT/OT, encourage OOB to chair
Pt was living alone prior to admission (), will probably benefit from short term SNF post dc. As per Wendi Luna, dgt came in and spoke to pt about this and relayed that they do not wish for him to go to a SNF, want him to be dc home
Anticipated Discharge: 24 - 48 hours
Subjective/Interval History
-
Date of Service: April 09, 2024
Now on TPN
Objective Data
-
Labs:
Laboratory Results
04/09/24
05:50
WBC 7.6
Hgb 8.4 L
Hct 25.5 L
Plt Count 214
Sodium 135
Potassium 3.8
Chloride 104
Carbon Dioxide 28
BUN 24 H
Creatinine 0.9
Glucose 184 H
Calcium 7.7 L
Total Bilirubin 0.6
AST 48
ALT 52 H
Alkaline Phosphatase 156 H
Vital Signs:
Vital Signs
Temp Pulse Resp BP Pulse Ox
98.9 F 52 19 125/63 97
04/09/24 07:32 04/09/24 08:07 04/09/24 07:32 04/09/24 08:07 04/09/24 08:24
I&O
04/08/24 04/09/24 04/10/24
06:59 06:59 06:59
Intake Total 680 / 680 1410 / 1410
Output Total 490 / 490 805 / 805
Balance 190 / 190 605 / 605
Review of Systems
-
History Source: Patient
Constitutional: Denies Fever
EENT: Reports No Symptoms Reported
Respiratory: Reports No Symptoms
Cardiac: Reports No Symptoms
Abdomen/GI: Reports Abdominal Pain (mild) and Constipated (no stool yet, passing some flatus); Denies Nausea or Vomiting
Musculoskeletal: Reports No Symptoms
Neuro: Reports No Symptoms
Physical Exam
-
General: Well Developed, Well Nourished and No Apparent Distress
HEENT: Normocephalic, Atraumatic and Moist Mucous Membranes
Respiratory: Clear to Auscultation (shallow respirations); Negative Wheezes, Rales or Rhonchi
Cardiac: Regular Rhythm and S1/S2
GI: Soft, Tender (mild tenderness), Distended (mild distention) and Other ([address]); Negative Normal Bowel Sounds (BS moderately reduced, remain hypoactive)
Neuro: Awake, Alert and Oriented
[2024-04-09 12:35] LABS: Glucose - Point of Care 192 mg/dl (70-99)
[2024-04-09] MEDS: NOVOLOG FLEXPEN-LOW RESISTANCE 1 UNITS SC (13:07)
[2024-04-09 15:03] VITALS: BP 140/71
--- NOTE | 2024-04-09 16:19 | CM ---
Patient seen at bedside with daughter. Patient daughter clarified that patient plan is to go home with family care. CM reviewed options and Post acute information; referral sent to [facility] [phone] and [facility]. CM awaiting
responses. CM will continue to follow for discharge planning needs.
Plan; home with [facility] and [facility]
--- NOTE | 2024-04-09 16:26 | CM ---
Patient seen at bedside with daughter present. Patient does not want to go to SNF per daughter, CM reviewed PAC data and sent referral to [facility], awaiting response to faxed clinical information [phone] and [facility] to accept patient per all scripts.
CM will continue to follow for discharge planning needs.
Plan; home with TPN/Infusion referral sent to [facility] awaiting response.
[2024-04-09 17:57] LABS: Glucose - Point of Care 184 mg/dl (70-99)
[2024-04-09] MEDS: NOVOLOG FLEXPEN-MODERATE RESISTANCE 1 UNITS SC (18:02)
[2024-04-09 19:51] VITALS: BP 152/68
[2024-04-09] MEDS: Parenteral Nutrition, Central 1700 IV (20:54)
[2024-04-09 23:00] VITALS: BP 167/75
[2024-04-09 23:28] LABS: Glucose - Point of Care 211 mg/dl (70-99)
[2024-04-09] MEDS: NOVOLOG FLEXPEN-MODERATE RESISTANCE 3 UNITS SC (23:39)
[2024-04-09] MEDS: TYLENOL 1000 MG PO (23:40)
[2024-04-10] VITALS (7 sets, daily range): BP systolic 143–163; BP diastolic 63–77; PULSE 54; O2SAT 99; BMI 25.2
[2024-04-10 04:57] LABS: % Basophils 0.1 % (0-2); % Immature Granulocytes 2.3 % (0-0.5); % Monocytes 9.8 % (1.7-9.3); % Neutrophils 72.8 % (42.2-75.2); Absolute Eosinophils 0.2 10^3/uL (0-0.7); Absolute Immature Granulocytes 0.2 10^3/uL (0-0.05); Absolute Monocytes 0.8 10^3/uL (0.1-0.6); Absolute Neutrophils 5.8 10^3/uL (1.4-6.5); Hematocrit 25.7 % (39.0-52.0); Hemoglobin 8.4 g/dL (13.0-18.0); Mean Corp Hgb Conc. 32.7 g/dL (33.0-37.0); Mean Corpuscular Hgb 30.5 pg (27.0-31.0); Mean Corpuscular Volume 93.5 fL (80.0-94.0); Mean Platelet Volume 10.7 fL (7.4-10.4); Nucleated Red Blood Cells % 0.4 % (-); Platelet Count 255 10^3/uL (130-400); Red Blood Cell Count 2.75 10^6/uL (4.70-6.10); Red Cell Dist. Width 14.2 % (11.5-14.5)
[2024-04-10 05:19] LABS: ALT (SGPT) 75 U/L (0-50); AST (SGOT) 59 U/L (17-59); Albumin 2.3 g/dl (3.5-5.0); Alkaline Phosphatase 181 U/L (38-126); Blood Urea Nitrogen 24 mg/dl (9-20); Carbon Dioxide 28 mmol/L (22-30); Chloride 103 mmol/L (98-107); Estimated Creatinine Clearance 49 ml/min; Glucose 168 mg/dl (70-99); Phosphorus 3.3 mg/dl (2.5-4.5); Potassium 3.9 mmol/L (3.5-5.1); Sodium 136 mmol/L (135-145); Total Bilirubin 0.5 mg/dl (0.2-1.3); Total Protein 4.6 g/dl (6.3-8.2); Triglycerides 111 mg/dl (10-149); eGFR > 60.00
[2024-04-10 06:27] LABS: Glucose - Point of Care 213 mg/dl (70-99)
[2024-04-10] MEDS: NOVOLOG FLEXPEN-MODERATE RESISTANCE 3 UNITS SC ×2 (06:28→11:27)
--- NOTE | 2024-04-10 07:53 | W.PN.HOSP.TC ---
Today's Communication/Plan
-
Still awaiting TPN arrangement
AM Labs
Assessment / Plan
Assessment / Plan
Physical Exam
General: Not in acute distress
HEENT: Moist Mucous Membranes
Respiratory: Clear to Auscultation Bilaterally
Cardiac: Regular Rhythm and S1/S2
GI: Soft, Tender (mild tenderness), Distended (mild distention) and OFELIA drain in place
Neuro: Awake, Alert and Oriented
Assessment/Plan
has elevated Amylase draining from surgical site and plan is to dc on TPN once arrangements completed
Pancreatic Head Mass Status Post Whipple Surgery on March 31, 2024
Large multicystic nodules in the head of the pancreas extending to the uncinate process
Pancreatic cysts/pancreatic cancer
Leukocytosis
-Whipple surgery on 03/31/24
-Type and Screen and blood consent already obtained prior to surgery, as per Dr. Lee
-Monitor H&H Hgb 10.7-->10.9-->10.6-->11.1-->11.0-->9.5-->9.2-->8.7-->9.3-->9.0-->8.4-->8.4
-Iron sat 14%, Ferritin 97.6
-Toradol ordered by Dr. Lee stopped
WBC 11.1-->12.9-->13.6-->7.7-->5.9-->8.2-->6.2-->7.0-->7.9-->7.6-->8.0
- back to being NPO with TPN
-Pulmonary toilet
-OOB to chair
having frequent hiccups
thorazine prn
Continue TPN
Suspected Acute Blood Loss Anemia
Vitamin B12 close to low range @287
-IV iron while inpatient completed
-Supplement Vitamin B12 IM 1000 mcg, started on 04/01 -- Vitamin B12 was stopped
glu trending up while on TPN
-Continue Insulin Sliding Scale Q6H
-Diabetes MINGLE OPERATOR consulted, recommendations appreciated
04/09 Superficial thrombus: Small segment of occlusive thrombus within the right cephalic vein within the distal forearm.
pt remains on Heparin 5000 q12h
Elevated Hepatic Transaminases
AST 86-->79-->59-->46-->27
-resolved
History of Episode Atypical Chest Pain
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
SVT
NSVT
History of loop recorder placement
PACs
PVCs (sees cardiology at [place])
History of cardiac rhythm pauses
-Patient was on Atenolol 25 mg qam and 37.5 mg in the morning as per outpatient records (AISHA Woodard called dgt and confirmed dose)
-Cardiology consulted given patient's bradycardia
-Appreciate cardiology
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
AAA (sees a vascular surgeon at [facility])
-Based on outside vascular surgeon records, AAA size is 4.6
-Sees Vascular Surgeon Dr. Vázquez at [facility]
-Planned for repeat imaging in April 2024
-Closely follow-up with Dr. Shannon Vázquez MD, outpatient
DM
-Accuchecks Q6H
-Start Diabetic, Low Sodium diet when patient is not NPO anymore
glu 150-242 on TPN and SSI
HTN
-Outpatient cardiology records show that patient takes Losartan 12.5 mg bid
-Appreciate cardiology adjustment of Losartan
-Per records, patient gets dry cough with Lisinopril
-Previously used to take HCTZ, but no longer
-Low sodium diet when diet is resumed
HLD
-Continue home Atorvastatin and monitor LFTs/hepatic transaminases
BPH
-Continue Flomax when able to take PO
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
-No cardioembolic source was found at that time
-Continue Aspirin, Plavix and Statin
Varicose veins
?skin cancer?
History of nephrolithiasis
DVT PPx: SCDs
Code Status: Full Code
PT/OT, encourage OOB to chair
Pt was living alone prior to admission (), will probably benefit from short term SNF post dc. As per Wendi Luna, dgt came in and spoke to pt about this and relayed that they do not wish for him to go to a SNF, want him to be dc home
Anticipated Discharge: 24 - 48 hours
Subjective/Interval History
-
Date of Service: April 10, 2024
Patient was seen and examined. He denied any new significant symptoms or complaints.
Objective Data
-
Labs:
Laboratory Results
04/10/24
04:11
WBC 8.0
Hgb 8.4 L
Hct 25.7 L
Plt Count 255
Sodium 136
Potassium 3.9
Chloride 103
Carbon Dioxide 28
BUN 24 H
Creatinine 0.9
Glucose 168 H
Calcium 8.0 L
Total Bilirubin 0.5
AST 59
ALT 75 H
Alkaline Phosphatase 181 H
Vital Signs:
Vital Signs
Temp Pulse Resp BP Pulse Ox
98.2 F 49 18 151/73 96
04/10/24 07:35 04/10/24 07:35 04/10/24 07:35 04/10/24 07:35 04/10/24 07:35
I&O
04/09/24 04/10/24 04/11/24
06:59 06:59 06:59
Intake Total 1410 / 1410 1702 / 1702
Output Total 805 / 805 750 / 750
Balance 605 / 605 952 / 952
[2024-04-10] MEDS: TENORMIN PO (08:07)
[2024-04-10] MEDS: PROTONIX 20 MG PO ×2 (08:20→19:46)
[2024-04-10] MEDS: ASPIR LOW (ENTERIC COATED) 81 MG PO (08:20)
[2024-04-10] MEDS: PLAVIX 75 MG PO (08:20)
[2024-04-10] MEDS: SANDOSTATIN 50 MCG SC ×3 (08:20→21:11)
--- NOTE | 2024-04-10 09:35 | CON.CAR ---
Addendum entered and electronically signed by Kyle Lawrence MD 04/10/24 14:08:
I saw and examined the patient.
The INSPECTOR MECHANICAL's note was reviewed and I agree with the note.
Comment: We will use a lower dose of atenolol for his hx of SVT. If HR stay persistently less than 50 I would stop atenolol and watch for clinical recurrence of SVT. I suggested he obtain a BP cuff that can measure heart rate.
Original Note:
Consultation
Consultation Request
Date/Time Consultation Requested: 04/10/24 08
Date/Time Consultation Performed: 04/10/24929
Requesting Provider: Dr. Tai
Performing Provider: Iliana MCINTYRE for Dr. Lawrence
Reason for Consultation: bradycardia
Medical History
-
Chief Complaint: pancreatic cancer s/p whipple
History of Present Illness:
84 y/o male with hypertension, SVT, bradycardia, hx CVA on DAPT, dyslipidemia, AAA (48 x 35 mm 08/2023, Dr. Vázquez follows) with pancreatic cancer s/p Whipple 03/31/24. Post-op, there was suspected pancreaticojejunostomy leak. He is also noted to be
anemic. Right cephalic vein thrombus noted as well. We are consulted due to bradycardia noted on the monitor. All SB to my review. He is feeling fine and denies any concerning cardiac symptoms.
Past Medical History
Past Medical History: Arrhythmias, Cancer, CVA, HTN, Hypercholesterolemia and Other (bradycardia)
Social History
Tobacco: Non-Smoker
Family History
Family History: Reviewed & Not Pertinent
Allergies / Home Medications
Allergy/AdvReac Type Severity Reaction Status Date / Time
No Known Allergies Allergy Verified 03/31/24 08:03
�Medication �Instructions �Recorded �Confirmed �Type
aspirin 81 mg tablet 81 mg PO DAILY 01/20/24 03/31/24 History
atenolol 25 mg tablet 12.5 mg PO DAILY 01/20/24 03/31/24 History
atorvastatin 80 mg tablet 80 mg PO DAILY 01/20/24 03/31/24 History
clopidogrel 75 mg tablet 75 mg PO DAILY 01/20/24 03/31/24 History
losartan 25 mg tablet 25 mg in AM and 37.5 mg in PM 01/20/24 03/31/24 History
mirabegron 50 mg tablet,extended 50 mg PO HS 01/20/24 03/31/24 History
release 24 hr (Myrbetriq)
tamsulosin 0.4 mg capsule 0.4 mg PO HS 01/20/24 03/31/24 History
03/29/24 03/31/24 History
Review of Systems
-
History Source: Patient and Other (and chart)
All other systems: Negative unless noted (denies any SOB, CP, dizziness, syncope. Post-op pain is controlled.)
Physical Exam
Vital Signs
Temp Pulse Resp BP Pulse Ox
98.2 F 46 18 151/73 96
04/10/24 07:35 04/10/24 08:07 04/10/24 07:35 04/10/24 07:35 04/10/24 08:00
Lab Results
04/10/24 04:11
04/10/24 04:11
Physical Exam
General: Well Developed and No Apparent Distress
HEENT: Normocephalic and Anicteric
Respiratory: Clear and Non Labored Respirations
Cardiac: Regular Rhythm (SB)
Musculoskeletal: No Edema
Neuro: AO x 3
Psych: Calm
Impression / Plan
-
Pancreatic cancer:
-s/p Whipple 03/31/24 Dr. Lee. Post-op, there was suspected pancreaticojejunostomy leak. Post-op, there was suspected pancreaticojejunostomy leak. He is also noted to be anemic. Right cephalic vein thrombus noted as well.
-management per surgery
Bradycardia:
-asymptomatic
-all sinus to my review
-Of note, patient with hx bradycardia and as a result is only on atenolol 12.5 mg in AM per notes. He has been getting higher dosing here. I would recommend going back to his typical dosing and monitor.
HTN:
-per OP cardiology notes, patient is on atenolol 12.5 mg PO daily and losartan 25 mg in AM and 37.5 mg in PM
-would recommend going back to his usual dosing of anti-hypertensives
pSVT:
-BB as above
Hx CVA:
-on DAPT
AAA:
-continue to follow with OP physician
Data Reviewed
-
EKG: Tracing Personally Visualized and interpreted (SB 53 BPM )
Radiology: Report Reviewed by me (CXR: No active cardiopulmonary disease. The tip of the PICC line is at the cavoatrial junction)
Medical Tests (Nuc Med, Echo etc): Other (pre-op PET CT negative no ischemia)
Labs: Labs Reviewed by me
Old Records: Reviewed (Dr. Orosco OP note pre-op)
[2024-04-10] MEDS: COZAAR 25 MG PO (11:24)
[2024-04-10 11:28] LABS: Glucose - Point of Care 205 mg/dl (70-99)
--- NOTE | 2024-04-10 14:34 | PN.DE.MGMTRT ---
Insulin Management
- -
04/10/2024: Diabetes Management Consult.
84 year old male admitted on 03/31 for schedule Whipple procedure.
PMH: HTN, Arrhythmias/SVT/bradycardia, CVA on DAPT, Dyslipidemia, AAA and pancreatic cancer s/p Whipple 03/31/24. 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 Pt is noted for Hyperglycemia with progressing elevation in glucose levels since
initiation of TPN on 04/06.
pt awake, A/O x3, sitting up in chair, family-Brother and HARSHA at bedside, offers no complaints, able to discuss glucose control
Glucose has tended up to 242 requiring 1-3 units of corrective insulin.
Will start Long acting insulin. Give Lantus 10 units, 1st dose NOW, then @ 8AM thereafter.
Cont moderate corrective insulin Q6 hrs.
Will consider adding Q6 hr NovoLog if necessary. Check A1C
Will monitor closely. Glucose mgt plan discussed with pt and Nurse
Diabetes History
- -
Pre-Admission Diabetes Regimen
04/10/24
04:11
Creatinine 0.9
Lab Results
Hemoglobin A1c Cancelled 04/10/24 14:08
Insulin Pump Settings
IP Diabetes Regimen
04/09/24 04/09/24 04/10/24
17:55 23:26 04:11
Glucose 168 H
POC Glucose 184 H 211 H
04/10/24 04/10/24
06:23 11:27
Glucose
POC Glucose 213 H 205 H
Meal type: Lunch
Patient Education
--- NOTE | 2024-04-10 14:34 | CM ---
Reviewed the chart notes. CM spoke with [facility] liaison. TPN covered at 100%. Per physician, patient will be discharged on subcutaneous Sandostatin. VN will follow the patient. [facility] will reach out to physician for TPN orders. CM continues to
be available to patient/family and is monitoring medical plan for needs at discharge.
Plan: Discharge to home on TPN with VN services.
[2024-04-10] MEDS: LANTUS 0.100000000000000006 UNITS SC (14:41)
[2024-04-10] MEDS: LIPITOR 80 MG PO (14:41)
--- NOTE | 2024-04-10 15:40 | W.PN.GENERIC ---
Assessment / Plan
-
S/p Whipple procedure for a pancreatic head tumor POD #10
He remains stable
Unfortunately, he has a pancreaticojejunostomy anastomosis leak - Repeat peritoneal fluid > 10,000 U/L (04/09/24) indicating ongoing leak
Continue NPO, TPN, and SQ Sandostatin until the leak seals, which may take several weeks.
Since he is hemodynamically stable, this can be done as outpatient
No other active issues.
When home TPN and SQ Sandostatin are setup, will plan to DC patient home.
Will closely monitor the amount of OFELIA output and the peritoneal fluid amylase levels to decide when to start oral intake and taper off TPN ans Sandostatin.
Hope to dc home soon.
Physician Progress Note
Subjective
He had no complaints. No abdominal pain, hiccups, nausea, or vomiting. He has less lower back pain
Objective
Vital Signs
Temp Pulse Resp BP Pulse Ox
98.3 F 51 18 163/74 97
04/10/24 11:30 04/10/24 11:30 04/10/24 11:30 04/10/24 11:30 04/10/24 11:30
Lab Results
04/10/24 04:11
04/10/24 04:11
Abdomen - soft, NT, NT. Incision - CDI
OFELIA with still significant amount of brown fluid
Pul - CTA
Cor - RRR
[2024-04-10] MEDS: COZAAR 37.5 MG PO (17:24)
[2024-04-10] MEDS: NOVOLOG FLEXPEN-MODERATE RESISTANCE 1 UNITS SC (17:28)
[2024-04-10 17:29] LABS: Glucose - Point of Care 163 mg/dl (70-99)
--- NOTE | 2024-04-10 18:39 | PTCARENOTE ---
Patient's daughter concerned and upset that the patient has not been discharged yet; Asking for case management to contact her, also asking for management of field nurse case manager to contact her; Reached out to case fitter who was on today; Daughter given
number for case management office
[2024-04-10] MEDS: Parenteral Nutrition, Central 1400 IV (20:54)
[2024-04-11 00:01] LABS: Glucose - Point of Care 306 mg/dl (70-99)
[2024-04-11] MEDS: NOVOLOG FLEXPEN-MODERATE RESISTANCE 7 UNITS SC (00:03)
[2024-04-11 03:02] VITALS: BP 149/69
[2024-04-11 05:06] LABS: % Basophils 0.2 % (0-2); % Eosinophils 1.8 % (0-6); % Immature Granulocytes 4.3 % (0-0.5); % Lymphocytes 9.7 % (20.5-51.1); % Monocytes 9.9 % (1.7-9.3); % Neutrophils 74.1 % (42.2-75.2); Absolute Eosinophils 0.2 10^3/uL (0-0.7); Absolute Immature Granulocytes 0.4 10^3/uL (0-0.05); Absolute Lymphocytes 0.9 10^3/uL (1.2-3.4); Absolute Neutrophils 7.1 10^3/uL (1.4-6.5); Hematocrit 28.8 % (39.0-52.0); Hemoglobin 9.2 g/dL (13.0-18.0); Mean Corp Hgb Conc. 31.9 g/dL (33.0-37.0); Mean Corpuscular Hgb 31.1 pg (27.0-31.0); Mean Corpuscular Volume 97.3 fL (80.0-94.0); Mean Platelet Volume 10.5 fL (7.4-10.4); Nucleated Red Blood Cells % 0.3 % (-); Platelet Count 269 10^3/uL (130-400); Red Blood Cell Count 2.96 10^6/uL (4.70-6.10); Red Cell Dist. Width 14.1 % (11.5-14.5); White Blood Cell Count 9.6 10^3/uL (4.8-10.8)
[2024-04-11 06:00] VITALS: BMI 25.7
[2024-04-11 06:05] LABS: Glucose - Point of Care 204 mg/dl (70-99)
[2024-04-11] MEDS: NOVOLOG FLEXPEN-MODERATE RESISTANCE 3 UNITS SC (06:13)
[2024-04-11 07:22] VITALS: BP 160/84
[2024-04-11 08:46] LABS: Glycohemoglobin (HgbA1c) 6.5 % (4.0-5.6)
[2024-04-11] MEDS: PLAVIX 75 MG PO (09:20)
[2024-04-11] MEDS: PROTONIX 20 MG PO (09:20)
[2024-04-11] MEDS: TENORMIN 12.5 MG PO (09:20)
[2024-04-11] MEDS: ASPIR LOW (ENTERIC COATED) 81 MG PO (09:21)
[2024-04-11] MEDS: COZAAR 25 MG PO (09:22)
[2024-04-11] MEDS: LIPITOR 80 MG PO (09:22)
[2024-04-11] MEDS: LANTUS 0.149999999999999994 UNITS SC (09:22)
[2024-04-11] MEDS: SANDOSTATIN 50 MCG SC ×2 (09:23→16:04)
--- NOTE | 2024-04-11 09:23 | CM ---
Addendum entered by Ken Choi 04/11/24 15:18:
ARIANNA spoke to Dr. nogueira and he has been notified of a challenging process of getting Sandostatin and he stated he will deal with Sandostatin medication on an outpatient level and his concerns to whether or not TPN services are in place. Dr. Lee is
notified that [facility] infusion therapy accepted the pt for TPN infusion therapy. Dr. lee confirmed he will not hold pt;s discharge just because of Sandostatin.
ARIANNA spoke to pt's daughter Sue and she confirmed she spoke to Dr. Lee and she will coordinate with him on outpatient level regarding Sandostatin. pt's daughter expressed her desire to bring the pt home today.
Please fax discharge instructions to [facility] at [phone].
D/C plan: home with [facility] infusion therapy, [facility], family support and follow up with Dr. Lee regarding Sandostatin medication on an outpatient level. Daughter to transport.
Addendum entered by Ken Choi 04/11/24 14:20:
Discharge order noted.
Pt is aware, expressed his agreement with discharge. IMM reviewed, placed on chart, pt has a copy.
ARIANNA spoke to [facility] infusion therapy liaison Harsh and he confirmed that pt is accepted for home infusion therapy and medications with pump will be delivered to pt's home at 5:00 p.m. today.
ARIANNA has been trying to find out whether or not [facility] pharmacies have in stock Sandostatin 50 MCG . ARIANNA called numerous [facility] pharmacies in [facility], their phone systems do not allow to talk to a pharmacist and requested to leave a message. ARIANNA left a
message and received a confirmation. ARIANNA received a phone call from [facility] pharmacist and was told that Sandostatin is very expensive medication and it has to go to [facility] specialty pharmacy . Per pharmacist, there is no way that insurance
will cover the johnson or it will definitely require prior authorization and to have credit card to make prepayment. .
ARIANNA spoke to pt's daughter, explained her the situation. pt's daughter is aware that [facility] approved pt for services and medication will be delivered at 5:00 p.m. and pt's daughter stated she is aware. As for Sandostatin, pt's daughter is notified of
the [facility] and [facility] specialty home delivery pharmacy phone number provided [phone]. Pharmacy locates in [place]. Pt's daughter stated she will call me back regarding her solution.
D/C plan: home with [facility] home infusion TPN therapy, [facility], family support. Awaiting for the solution regarding the cost of Sandostatin and to when pt can have that medication available.
Addendum entered by Ken Choi 04/11/24 10:39:
CM diligently communicating with Dr. Lee, and Dr. Tai regarding clarifying the needs for TPN and a script for Sandostatin. CM communicating with director of regarding expediting discharge needs process.
CM spoke to Dr. Lee and he confirmed that all necessary requested by [facility] documentation regarding need for TPN will be addressed within an hour.
CM spoke to [facility] supervisor of communications Harsh [phone] and he will communicate directly with Dr. Lee.
Awaiting for [facility] to accept the pt for TPN services.
CM spoke to pt's daughter Sue and she continues expressing her strong request to bring pt home today with necessary services and per daughter she can bring pt home even late evening , just make sure it must be today and only today.
Pt's daughter updated on pt's discharge plan progress and the need of her training regarding administering Sandostatin.
Original Note:
CM following re: discharge planning.
Reviewed pt's chart. Per CM note a plan is to discharge the patient home on subcutaneous Sandostatin with [facility] home infusion therapy and [facility].
CM received a phone call early this morning from pt's daughter Sue [phone] and she was screaming and yelling on me regarding discharge pkan and she made a strong request that her 'dad must be discharged home today and only today, not tomorrow
or Wednesday and all services need to be in place today'.
Per CM note home infusion therapy initiated with [facility] home infusion therapy. CM called [facility] home infusion therapy [phone], spoke to field service representative Marlia, requested additional requested clinical faxed to [phone] and per Josie, they will
review a referral and they will let me know whether or not they can provide infusion therapy. Per Josie, their pharmacist spoke to pt's daughter and they are aware that daughter has a strong desire to bring the pt home today. Pt's daughter stated
she will bring the pt home and again, requested strongly that it must be today.
CM spoke to pt's daughter and she is aware of the above, again requested increased effort to get TPN services in place today and only today and she stated again she must to bring the pt home today. CM explained again the process of setting up after
care services, provided her with [facility] infusion therapy phone number.
Awaiting for [facility] to accept the pt for TPN services.
D/C plabn: home with [facility] home infusion therapy, [facility] and family support. Daughter to transport.
CM will follow to assist pt with discharge plan process.
--- NOTE | 2024-04-11 11:24 | W.PN.GENERIC ---
Assessment / Plan
-
S/p Whipple procedure - Now with a pancreaticojejunostomy anastomosis leak (OFELIA drain peritoneal fluid amylase > 10,000 U/L))
Will need TPN, NPO, and SQ Sandostatin for 3-4 months, even longer
Explained to the patient and family, if he continues to eat, the leak will not seal due to high pancreatic juice output and he may get septic if the fluid gets infected.
DC pt home when home TPN and SQ sandostatin are set up
Physician Progress Note
Subjective
no issues over night. Waiting home TPN setup.
Objective
Vital Signs
Temp Pulse Resp BP Pulse Ox
98.6 F 72 16 160/84 100
04/11/24 07:22 04/11/24 07:22 04/11/24 07:22 04/11/24 07:22 04/11/24 09:16
Lab Results
04/11/24 04:59
04/10/24 04:11
Abd - soft ND NT. incision - CDI
OFELIA intact
[2024-04-11 11:41] VITALS: BP 163/87
--- NOTE | 2024-04-11 11:43 | W.DS.TRANS ---
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
-
Discharge Instructions:
Sleep Apnea Risk Low
Discharge Diagnosis/Procedures pancreatic tumor
Additional Diets NPO
Activity No strenuous activity,As tolerated
Driving Restrictions Not until seen by your Dr
Bathing Restrictions sponge bath
Other Services VN,PT,OT
Instructions:
Stand-Alone Forms:
Changes to Home Medications: Yes
Discharge Medications:
DC Medications w/original date entered in [employer]
aspirin 81 mg tablet 81 mg PO DAILY 01/20/24
atenolol 25 mg tablet 25 mg PO DAILY 01/20/24
atorvastatin 80 mg tablet 80 mg PO DAILY 01/20/24
clopidogrel 75 mg tablet 75 mg PO DAILY 01/20/24
losartan 25 mg tablet 12.5 mg PO BID 01/20/24
mirabegron 50 mg tablet,extended release 24 hr (Myrbetriq) 50 mg PO HS 01/20/24
tamsulosin 0.4 mg capsule 0.4 mg PO HS 01/20/24
atenolol 25 mg tablet 37.5 mg PO HS 03/29/24
octreotide acetate 50 mcg/mL injection solution (Sandostatin) 50 mcg SC BID #90 mL 04/11/24
Home Medication Changes
Pending Results: No
[2024-04-11 12:09] LABS: Glucose - Point of Care 80 mg/dl (70-99)
[2024-04-11] MEDS: NOVOLOG FLEXPEN-MODERATE RESISTANCE SC (12:18)
--- NOTE | 2024-04-11 12:35 | W.PN.HOSP.TC ---
Today's Communication/Plan
-
Discharge today
Assessment / Plan
Assessment / Plan
Physical Exam
General: Not in acute distress
HEENT: Moist Mucous Membranes
Respiratory: Clear to Auscultation Bilaterally
Cardiac: Regular Rhythm and S1/S2
GI: Soft, Tender (mild tenderness), Distended (mild distention) and OFELAI drain in place
Neuro: Awake, Alert and Oriented
Assessment/Plan
Pancreatic Head Mass Status Post Whipple Surgery on March 31, 2024
Large multicystic nodules in the head of the pancreas extending to the uncinate process
Pancreatic cysts/pancreatic cancer
Leukocytosis
-Whipple surgery on 03/31/24
-Type and Screen and blood consent already obtained prior to surgery, as per Dr. Lee
-Monitor H&H Hgb 10.7-->10.9-->10.6-->11.1-->11.0-->9.5-->9.2-->8.7-->9.3-->9.0-->8.4-->8.4-->9.2
-Iron sat 14%, Ferritin 97.6
-Toradol ordered by Dr. Lee stopped
WBC 11.1-->12.9-->13.6-->7.7-->5.9-->8.2-->6.2-->7.0-->7.9-->7.6-->8.0-->9.6
- back to being NPO with TPN
-Pulmonary toilet
-OOB to chair
having frequent hiccups
thorazine prn
Continue TPN
Check labwork as per Dr. Artur Lee (labwork may need to be checked more than once per week)
Suspected Acute Blood Loss Anemia
Vitamin B12 close to low range @287
-IV iron while inpatient completed
-Supplement Vitamin B12 IM 1000 mcg, started on 04/01 -- Vitamin B12 was stopped
-Recheck Vitamin B12 outpatient
glu trending up while on TPN
-Continue Insulin Sliding Scale and Lantus Insulin on discharge
-Diabetes OPTOMETRIC TECHNICIAN consulted, recommendations appreciated
04/09 Superficial thrombus: Small segment of occlusive thrombus within the right cephalic vein within the distal forearm.
pt remains on Heparin 5000 q12h
Elevated Hepatic Transaminases
AST 86-->79-->59-->46-->27
-resolved
History of Episode Atypical Chest Pain
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
SVT
NSVT
History of loop recorder placement
PACs
PVCs (sees cardiology at [place])
History of cardiac rhythm pauses
-Cardiology consulted given patient's bradycardia
-per OP cardiology notes, patient is on atenolol 12.5 mg PO daily and losartan 25 mg in AM and 37.5 mg in PM
-would recommend going back to his usual dosing of anti-hypertensives
-Appreciate cardiology
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
AAA (sees a vascular surgeon at [place])
-Based on outside vascular surgeon records, AAA size is 4.6
-Sees Vascular Surgeon Dr. Vázquez at [place]
-Planned for repeat imaging in April 2024
-Closely follow-up with Dr. Shannon Vázquez MD, outpatient
DM
-Insulin as above
HTN
-per OP cardiology notes, patient is on atenolol 12.5 mg PO daily and losartan 25 mg in AM and 37.5 mg in PM
-Appreciate cardiology adjustment of Losartan
-Per records, patient gets dry cough with Lisinopril
-Previously used to take HCTZ, but no longer
-Low sodium diet when diet is resumed
HLD
-Continue home Atorvastatin and monitor LFTs/hepatic transaminases
BPH
-Continue Flomax when able to take PO
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
-No cardioembolic source was found at that time
-Continue Aspirin, Plavix and Statin
Varicose veins
?skin cancer?
History of nephrolithiasis
DVT PPx: SCDs
Code Status: Full Code
PT/OT, encourage OOB to chair
Pt was living alone prior to admission (), will probably benefit from short term SNF post dc. As per Wendi Luna, dgt came in and spoke to pt about this and relayed that they do not wish for him to go to a SNF, want him to be dc home
More than 30 minutes spent in discharge including
Final examination of the patient
Summarizing hospital stay
Instructions for continuing care to all relevant caregivers
Preparation of discharge records, prescriptions, and referral forms
Total time spent (in minutes): 39
Anticipated Discharge: Today
Subjective/Interval History
-
Date of Service: April 11, 2024
Patient was seen and examined. He had a bowel movement and denied any new significant symptoms or complaints.
Objective Data
-
Labs:
Laboratory Results
04/10/24 04/11/24
04:11 04:59
WBC 8.0 9.6
Hgb 8.4 L 9.2 L
Hct 25.7 L 28.8 L
Plt Count 255 269
Vital Signs:
Vital Signs
Temp Pulse Resp BP Pulse Ox
97.8 F 71 18 163/87 99
04/11/24 11:41 04/11/24 11:41 04/11/24 11:41 04/11/24 11:41 04/11/24 11:41
I&O
0704/11/24 04/12/24
06:59 06:59 06:59
Intake Total 1702 / 1702 2202 / 2202
Output Total 750 / 750 1210 / 1210
Balance 952 / 952 992 / 992
--- NOTE | 2024-04-11 14:53 | W.PN.CD ---
Today's Communication / Plan
-
When I saw the patient this AM his heart rate was in the 70s awake. No sever dav on tele last 12 hrs
OK for continuing atenolol 12.5 daily (his chronic outpt dose)
We will sign off
F/u with his usual pvc loader
And f/u PCP for BP management
No cardiology followup needed at this time.
Impression / Plan
-
Sinus dav
- Improved on lower dose BB
Pancreatic cancer, s/p Whipple 03/31/24 Dr. Lee.
- Suspected pancreaticojejunostomy leak.
- Anemia
- Right cephalic vein thrombus
HTN:
-per outside outpatient cardiology notes, patient is on atenolol 12.5 mg PO daily and losartan 25 mg in AM and 37.5 mg in PM
-would recommend going back to his usual dosing of anti-hypertensives
pSVT:
-BB as above
Hx CVA, on DAPT
Hx AAA, continue to follow with OP physician
Physical Exam
Vital Signs/Labs
Vital Signs
Temp Pulse Resp BP Pulse Ox
97.8 F 71 18 163/87 99
04/11/24 11:41 04/11/24 11:41 04/11/24 11:41 04/11/24 11:41 04/11/24 11:41
04/10/24 04/11/24 04/12/24
06:59 06:59 06:59
Actual Weight 64.467 kg 65.68 kg
04/11/24 04:59
04/10/24 04:11
PT 15.0 Sec (11.4-14.6) H 03/31/24 15:53
INR 1.20 03/31/24 15:53
APTT 27.6 Sec (23.4-35.0) 03/31/24 15:53
Magnesium 2.0 mg/dl (1.6-2.3) 04/10/24 04:11
Triglycerides 111 mg/dl (10-149) 04/10/24 04:11
Physical Exam
Constitutional: No acute distress
Cardiovascular: Rhythm & rate is regular and Pedal edema is absent
Respiratory: Respiratory effort normal and Crackles Absent
GI: Soft
Neuro/Psych: Alert
Data Reviewed
-
Date of Service: April 11, 2024
[2024-04-11 15:15] VITALS: BP 136/77
--- NOTE | 2024-04-11 15:19 | VNURNOTE ---
Home Health Liaison called patient's daughter Nayeli at 1130. Lengthy conversation to discuss [facility] and answer questions.
Nayeli understands that [facility] will be out to see patient 2-3x per week and evaluate for PT/OT which will likely be needed once home.
[facility] SN will assess overall status and incisions, reinforce teaching done for OFELIA drain and injections.
[facility] can not monitor PICC line or infusion.
Nayeli verbalized understanding and is in agreement to learn care although she is overwhelmed.
hand profiler resource number was provided by email and discussed as she may need support initially.
[facility] referral updated after review of chart .
== END 2024-04-11 17:17 | disposition home health service (06) | DRG 406 ==
LOC: 2 SOUTH 07:46
PROVIDERS: Registered Nurse; ADMITTING PHYSICIAN Surgery; ATTENDING PHYSICIAN Hospitalist; CONSULT PHYSICIAN Internal Medicine Cardiovascular Disease; FAMILY PHYSICIAN Physician Assistant; OTHER PHYSICIAN Internal Medicine Pulmonary Disease
PROC: 0FT40ZZ Resection of Gallbladder, Open Approach (ICD-10-PCS; 2024-04-07)
PROC: 0FB90ZZ Excision of Common Bile Duct, Open Approach (ICD-10-PCS; 2024-04-07)
PROC: 0DB60ZZ Excision of Stomach, Open Approach (ICD-10-PCS; 2024-04-07)
PROC: 0FBG0ZZ Excision of Pancreas, Open Approach (ICD-10-PCS; 2024-04-07)
PROC: 0DT90ZZ Resection of Duodenum, Open Approach (ICD-10-PCS; 2024-04-07)
DX: C25.0 Malignant neoplasm of head of pancreas (principal); D62 Acute posthemorrhagic anemia; I47.10 Supraventricular tachycardia, unspecified; J98.11 Atelectasis; I82.611 Acute embolism and thrombosis of superficial veins of right upper extremity; I72.3 Aneurysm of iliac artery; I71.40 Abdominal aortic aneurysm, without rupture, unspecified; E11.9 Type 2 diabetes mellitus without complications; I10 Essential (primary) hypertension; E78.5 Hyperlipidemia, unspecified; N40.0 Benign prostatic hyperplasia without lower urinary tract symptoms; Z86.73 Personal history of transient ischemic attack (TIA), and cerebral infarction without residual deficits
CPT/HCPCS: 88304; 88309; 36415; 71045; 80053; 81003; 81015; 82150; 82607; 82728; 82962; 83036; 83540; 83550; 83690; 83735; 84100; 84478; 85014; 85018; 85025; 85027; 85610; 85730; 86850; 86900; 86901; 86920; 87040; 87077; 87086; 87186; 93005; 93971; 97110; 97116; 97163; 97167; 97530; 97535; C9250; J2916

== ENCOUNTER 2025-01-29 06:13 | Day surgery (SDC) | payer OTHER, SELFPAY ==
[2025-01-22 08:56] LABS: Hematocrit 40.7 % (39.0-52.0); Mean Corp Hgb Conc. 31.9 g/dL (33.0-37.0); Mean Corpuscular Hgb 29.9 pg (27.0-31.0); Mean Corpuscular Volume 93.6 fL (80.0-94.0); Platelet Count 168 10^3/uL (130-400); Red Blood Cell Count 4.35 10^6/uL (4.70-6.10); Red Cell Dist. Width 14.2 % (11.5-14.5); White Blood Cell Count 5.8 10^3/uL (4.8-10.8)
[2025-01-22 09:32] LABS: Blood Urea Nitrogen 27 mg/dl (9-20); Carbon Dioxide 27 mmol/L (22-30); Chloride 106 mmol/L (98-107); Glucose 92 mg/dl (70-99); Potassium 4.6 mmol/L (3.5-5.1); Sodium 143 mmol/L (135-145); eGFR > 60.00
[2025-01-22 13:33] VITALS: BMI 25.6
--- NOTE | 2025-01-23 11:01 | CM ---
CM reviewed medical records. CM spoke with patient's daughter Nayeli who requested Jeanna from [facility]. [facility] admission RN is aware of referral.
CM confirmed demographics. Patient lives independently with family. Patient does not have a history of SNF or DME. Pb is active with his PCP. Patient uses [facility] in [place].
Patient is Khmer speaking and will need translation services.
PLAN: Home with [facility]
--- NOTE | 2025-01-23 13:57 | VNURNOTE ---
Chart reviewed. Patient has had [facility] in the past, is familiar with our services. CM spoke with patient's daughter Nayeli. Scheduled for OR on 01/29. Referral for [facility] placed in [facility].
[2025-01-29] VITALS (11 sets, daily range): BP systolic 124–162; BP diastolic 60–86; BMI 25.6
--- NOTE | 2025-01-29 07:14 | HP.FOC2 ---
Focused History & Physical
Chief Complaint
HPI:
Chief Complaint: Incisional hernia
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
cancer. He has begun to take note of swelling in the region of his midline laparotomy surgical scar. He has an awareness of the hernia being present and occasional discomfort but no pain. He utilizes an abdominal binder/support throughout the day
with activities. No associated GI or symptoms.
Relevant Past Medical History: Other (Hypertension, stroke, BPH, IPMN with dysplasia)
Relevant Social History: Negative
Relevant Family History: Negative
Relevant Past Surgical History: Positive for (Whipple, bilateral inguinal hernia repair, Mohs)
Review of Systems
Review of Pertinent Systems: All Systems Negative
Medication
See Medication form for detailed medications: Yes
Medication List (including Herbals & OTC):
aspirin 81 mg tablet 81 mg PO DAILY 01/20/24
atorvastatin 80 mg tablet 80 mg PO DAILY 01/20/24
clopidogrel 75 mg tablet 75 mg PO DAILY 01/20/24
mirabegron 50 mg tablet,extended release 24 hr (Myrbetriq) 50 mg PO HS 01/20/24
tamsulosin 0.4 mg capsule 0.4 mg PO HS 01/20/24
atenolol 25 mg tablet 12.5 mg (1/2 x 25 mg) PO DAILY #30 tabs 04/11/24
blood sugar diagnostic (Contour Next Test Strips) #100 ea 04/11/24
lancets 21 gauge (Color Lancets) #100 ea 04/11/24
pen needle, diabetic 32 gauge x ' (BD Ultra-Fine Lidia Pen Needle) #200 ea 04/11/24
omeprazole magnesium 20 mg tablet,delayed release (Prilosec OTC) 20 mg PO DAILY PRN reflux 01/22/25
Medications Reviewed: Yes
Allergies and Reactions
Patient has Allergies: No
Noted Allergies and Reactions:
Allergy/AdvReac Type Severity Reaction Status Date / Time
No Known Allergies Allergy Verified 01/22/25 13:42
Pertinent Physical Exam
All Other Systems: Negative
Head/Neck: Normal
Lungs: Normal
Heart: Normal
Abdomen: Other (Midline laparotomy surgical scar. Soft, reducible incisional hernia measuring 6 cm vertically and 3 cm in width with some superimposed diastasis.)
Extremities: Normal
Neurological: Normal
Diagnosis / Assessment
84-year-old male presenting for scheduled operative correction of symptomatic incisional hernia
Plan / Procedure
Open incisional hernia repair with mesh (retrorectus)
Anesthesia/Sedation to be done by Anesthesia Provider: Yes
--- NOTE | 2025-01-29 07:17 | W.SUR.PREOP ---
Pre-Operative Surgical Note
-
I have examined this patient prior to the performance of the scheduled procedure.
The patient's condition is unchanged from the time of the current History and
Physical and the patient is able to undergo the scheduled procedure.
[2025-01-29] MEDS: TYLENOL 1000 MG PO (12:39)
[2025-01-29] MEDS: NORMOSOL-R/PLASMALYTE-A 1000 IV (12:50)
--- NOTE | 2025-01-29 17:35 | W.IMMPOSTOP ---
Addendum entered and electronically signed by Brady Meyer MD 02/05/25 11:54:
#[id number]
Original Note:
Surgical Immed Post Op Note
-
Primary Surgeon: Brady Meyer MD
Assisting Surgeon: Nancy Matias PA-c
Pre-op Diagnosis: Incisional hernia
Post-op Diagnosis: Incisional hernia (8 cm x 3 cm)
Procedure Performed: Open retrorectus mesh repair incisional hernia
Anesthesia Type: GETA +1% lidocaine and 0.25% Marcaine with epi
Specimen / Cultures: None
Estimated Blood Loss: 30 mL
Complications: None immediate
Operative Findings: Multiple upper midline incisional hernias spanning total vertical length of approximately 8 cm and maximal width of 3 cm. No bowel adhesions within hernia sac or adjacent abdominal wall. Retrorectus mesh repair. Peritoneum and
posterior sheath closed with running continuous 2-0 PDS STRATAFIX spiral suture. Bard soft mesh 18 cm in vertical length by 12 cm in width. 3 g Kady powder placed within the retrorectus space. Closure of anterior rectus sheath/linea alba with 2
separate strands of #1 PDS STRATAFIX symmetric suture. Deep subcutaneous tissues approximated to fascia with interrupted 2-0 Vicryl. Kory's layer closed with 2-0 Vicryl. Deep dermal 3-0 Vicryl. Skin closure with 4-0 Monocryl. Dayanara dressing
applied.
The assistance of Nancy Matias PA-C was required due to the complexity of the procedure. During the procedure Nancy Matias PA-C assisted with tissue retraction for exposure and closure of the incision site. I was present for the entirety of the
operative procedure through closure.
Patient's daughter updated postoperatively in the waiting area.
[2025-01-29] MEDS: DILAUDID 0.25 MG IV ×2 (17:59→18:13)
[2025-01-29] MEDS: NSS 1000 IV (19:30)
[2025-01-29] MEDS: FLOMAX 0.4 MG PO (21:00)
[2025-01-29] MEDS: MYRBETRIQ EXTENDED RELEASE 50 MG PO (21:00)
[2025-01-30] MEDS: TYLENOL 650 MG PO ×2 (00:25→10:52)
[2025-01-30 03:00] VITALS: BP 129/69
[2025-01-30] MEDS: NSS 1000 IV (03:38)
[2025-01-30 07:00] LABS: Hematocrit 36.4 % (39.0-52.0); Hemoglobin 11.8 g/dL (13.0-18.0); Mean Corp Hgb Conc. 32.4 g/dL (33.0-37.0); Mean Corpuscular Volume 92.6 fL (80.0-94.0); Mean Platelet Volume 10.5 fL (7.4-10.4); Platelet Count 163 10^3/uL (130-400); Red Blood Cell Count 3.93 10^6/uL (4.70-6.10); Red Cell Dist. Width 13.7 % (11.5-14.5); White Blood Cell Count 9.8 10^3/uL (4.8-10.8)
[2025-01-30 07:18] LABS: Blood Urea Nitrogen 23 mg/dl (9-20); Calcium 8.2 mg/dl (8.4-10.2); Carbon Dioxide 24 mmol/L (22-30); Chloride 107 mmol/L (98-107); Estimated Creatinine Clearance 44 ml/min; Glucose 151 mg/dl (70-99); Potassium 4.9 mmol/L (3.5-5.1); Sodium 139 mmol/L (135-145); eGFR > 60.00
[2025-01-30 07:25] VITALS: BP 127/68
--- NOTE | 2025-01-30 07:27 | W.PN.GS2 ---
Today's Communication / Plan
-
`
Assessment / Plan
-
Assessment: POD #1 status post open retrorectus mesh repair incisional hernia
History of hypertension, stroke, BPH, IPMN with dysplasia status post Whipple
[facility]
Overall doing well postop
Hemoglobin 11.8 consistent with intraoperative blood loss//acute blood loss anemia and delusional effects from IV fluid hydration
Plan: Multimodal pain control options - creatinine stable will give 1 dose Toradol 10 mg IV x 1 and have available for as needed
Rao in due to void
Diet as tolerated but smaller meals as abdominal bloating and distention/mild anorexia are to be expected
Home medications - but Plavix will be held for 72 hours postop; ASA okay
Up out of bed to chair/ambulate/PT
Case management consult for home VNA/dispo planning
maintain huber incisional dressing
Subjective Data
-
Date of Service: January 30, 2025
Patient seen and examined. Daughter at bedside to assist with strength patient is needed.
Patient reports postoperative pain but significant improvement after Tylenol p.o. this a.m.
Pain worse with movement but generally comfortable when lying still.
No nausea, appetite returning.
Objective Data
-
Intake and Output
01/29/25 01/30/25 01/31/25
06:59 06:59 06:59
Intake Total 1590 / 1590
Output Total 1875 / 1875
Balance -285 / -285
Intake:
Oral fluids 240 / 240
IV fluids (Total) 1350 / 1350
normosol 150 / 150
Output:
Urine, Rao 1700 / 1700
Urine, Voided 175 / 175
Vital Signs
Temp Pulse Resp BP Pulse Ox
99 F 64 16 129/69 96
01/30/25 03:00 01/30/25 03:00 01/30/25 03:00 01/30/25 03:00 01/30/25 03:00
Lab Results
01/30/25 06:10
01/30/25 06:10
Calcium 8.2 mg/dl (8.4-10.2) L 01/30/25 06:10
Physical Exam
-
NAD AAO x 3
ABD: Soft, not distended, mild tenderness palpation. No rebound rigidity or guarding.
Midline incision with HUBER dressing -maintaining suction and seal, clean
Patient has a rao catheter: No
--- NOTE | 2025-01-30 08:46 | CM ---
Addendum entered by Bijal Walls RN 01/30/25 13:33:
CM spoke with patient's daughter who was requesting discharge. CM advised that surgeon will be back around to check on patient and discuss discharge plan.
Original Note:
Cm reviewed medical records. Patient lives independently, but will stay with daughter. [facility] Cm updated [facility] Admission RN.
SERVICE ADDRESS:
[address] [place] [address]
[place] [id number]
PLAN: home with [facility]
[2025-01-30] MEDS: PEPCID 20 MG PO (09:00)
[2025-01-30] MEDS: TENORMIN 12.5 MG PO (09:00)
[2025-01-30] MEDS: ASPIR LOW (ENTERIC COATED) 81 MG PO (09:01)
[2025-01-30] MEDS: LIPITOR 80 MG PO (09:01)
[2025-01-30] MEDS: TORADOL 10 MG IV (09:01)
[2025-01-30 11:07] VITALS: BP 116/66
[2025-01-30 13:09] VITALS: BP 133/66; PULSE 66; O2SAT 97
[2025-01-30] MEDS: NSS IV (14:35)
[2025-01-30 15:10] VITALS: BP 122/66
--- NOTE | 2025-01-30 16:08 | W.DS.TRANS ---
DC Summary - Certification Technician
-
Discharge Instructions:
Sleep Apnea Risk Intermediate
Discharge Diagnosis/Procedures Incisional hernia. Open retrorectus mesh repair
incisional hernia
Diet As tolerated,Regular
Additional Diets Smaller meals/portion sizes as abdominal
bloating and distention may be common for the
first few days postop
Activity No strenuous activity
Additional Activity No lifting over 20 pounds for 6 weeks postop.
Driving Restrictions No driving for 2 weeks
Bathing Restrictions OK to Shower
Wound Care Leave HUBER dressing in place for 5 to 7 days as
long as holding seal/suction. May shower with
HUBER dressing in place. May replace dressing
and return to suction for an additional 5 to 7
days.
Instructions:
Stand-Alone Forms:
Changes to Home Medications: No
Discharge Medications:
DC Medications w/original date entered in [employer]
aspirin 81 mg tablet 81 mg PO DAILY 01/20/24
atorvastatin 80 mg tablet 80 mg PO DAILY 01/20/24
clopidogrel 75 mg tablet 75 mg PO DAILY 01/20/24
mirabegron 50 mg tablet,extended release 24 hr (Myrbetriq) 50 mg PO HS 01/20/24
tamsulosin 0.4 mg capsule 0.4 mg PO HS 01/20/24
atenolol 25 mg tablet 12.5 mg (1/2 x 25 mg) PO DAILY #30 tabs 04/11/24
famotidine 20 mg tablet (Pepcid) 20 mg PO DAILY 01/29/25
acetaminophen 500 mg tablet (Tylenol Extra Strength) 1,000 mg (2 x 500 mg) PO Q6HPRN PRN mild pain #1 tab 01/30/25
tramadol 50 mg tablet 25 - 50 mg (0.5 - 1 x 50 mg) PO Q6HPRN PRN severe pain/breakthrough pain #5 tabs 01/30/25
Home Medication Changes
Pending Results: No
== END 2025-01-30 18:30 | disposition home or self-care (01) ==
LOC: SDS 06:13
PROVIDERS: ATTENDING PHYSICIAN Surgery; FAMILY PHYSICIAN Physician Assistant
DX: K43.2 Incisional hernia without obstruction or gangrene (principal); Z90.411 Acquired partial absence of pancreas
CPT/HCPCS: 49593; 36415; 80048; 85027; 93005; 97162; 97530; C1781